=== PATIENT | female | born 1945 | race Caucasian/White ===

== ENCOUNTER → 2016-10-31 | Outpatient (CLI) | payer OTHER ==
[~2016-10-31] MED LIST: ASCA500 PO; CALC1TAB9 PO; CARB0.25 OPB; CPR500 PO; CYCL0.052 OP; KETO0.4S2 OPR; LEVO25TA PO; MULT-845 PO; MULTCAP33 PO
--- NOTE | 2016-11-12 15:22 | EEG Procedure Note ---
EEG Procedure Note Date of Service Oct 31, 2016. Start / End Times Start Time: 10/31/16 @ 9:16AM End Time: 11/02/16 @ 9:40AM Referring Physician JOSIE Villanueva History 71 year old female with episodes of altered consciousness and repeat falls. 48hr Ambulatory EEG for spell capture and for further evaluation of possible seizure etiology. Home Medication List Scheduled Ascorbic Acid (Vitamin C), 500 MG PO BID Calcium Citrate-Vitamin D (Citracal + D3 Maximum), 1 TAB PO BID Ciprofloxacin (Ciprofloxacin HCl), 500 MG PO BID Cyclosporine (Ophth) (Restasis), 1 DROP OP BID Ketorolac Tromethamine (Ophth) (Acular Ls), 1 DROP OPR QID Levothyroxine Sodium (Synthroid), 100 MCG PO DAILY Multiple Vitamins W/ Minerals (Preservision Areds), 1 CAP PO BID Multiple Vitamins W/ Minerals (Centrum Silver Adult 50+), 1 TABS PO BID Scheduled PRN Carboxymethylcellulose-Glyceri (Refresh Optive Advanced), 1 DROP OPB for DRY EYES Description This is a 21 electrode ambulatory EEG with a single channel dedicated to limited EKG. The electrodes were placed in accordance with the International 10- 20 system. At the start of the recording the patient was in an awake state. The background was well organized and composed of symmetric mixed alpha and beta frequencies. There was a well formed symmetric moderate amplitude posterior dominant rhythm of 10-11 Hz that was reactive to eye opening and closure. Sleep was indicated by vertex waves, symmetric sleep spindles, and slow wave sleep. Patient journal was returned and reviewed. There was no clinical events reported. Interpretation This is a normal 48hr ambulatory EEG There was no electrographic seizures or epileptiform discharges. Clinical Correlation A normal EEG does not rule out epilepsy if there is a strong clinical suspicion or for spell types not captured.
== END | disposition home or self-care (01) ==
LOC: C.NEUR 08:20
PROVIDERS: ATTEND Nurse Practitioner Adult Health
DX: R40.4 Transient alteration of awareness (principal); R29.6 Repeated falls

== ENCOUNTER 2017-09-18 19:24 | Observation (INO) | payer OTHER ==
[~2017-09-18] VITALS: Ht 162.6 cm; Wt 63.2 kg
[2017-09-18] MEDS ORDERED: SODIUM CHLORIDE 0.9% 500ML 500 ML IV STA (19:45)
[2017-09-18] MEDS ORDERED: SODIUM CHLORIDE 0.9% 1000ML 1,000 ML IV STA (19:45)
[2017-09-18] MEDS ORDERED: ASPI81TA28 PO (20:04)
[2017-09-18 20:09] LABS: BASO % 0.1 %; BASO ABS # 0.01 K/uL (0-0.2); EOS % 0.1 %; EOS ABS # 0.01 K/uL (0-0.5); HEMATOCRIT 43.5 % (37-47); HEMOGLOBIN 14.5 g/dL (12.0-16.0); IG# 0.02 K/uL (0.00-0.02); LYMPH ABS # 0.46 K/uL (1.2-3.4); MEAN CELL VOLUME 91.6 fL (80-100); MEAN CORPUSCULAR HEMOGLOBIN 30.5 pg (25-34); MEAN CORPUSCULAR HGB CONC 33.3 g/dl (32-36); MONO % 4.8 %; MONO ABS # 0.37 K/uL (0.11-0.59); NEUT % 88.7 %; NEUT ABS # 6.76 K/uL (1.4-6.5); PLATELET COUNT 155 K/uL (130-400); RED CELL DISTRIBUTION WIDTH SD 43.7 fL (36.4-46.3); WHITE BLOOD COUNT 7.63 K/uL (4.8-10.8)
--- NOTE | 2017-09-18 20:13 | DIAGNOSTIC IMAGING REPORT ---
CT SCAN OF THE BRAIN WITHOUT IV CONTRAST CLINICAL HISTORY: Syncope. Fall. COMPARISON STUDY: CT of the brain dated 07/25/2016. TECHNIQUE: Unenhanced axial CT scan of the brain is performed from the vertex to the skull base. A dose lowering technique was utilized adhering to the principles of ALARA. CT DOSE: 873.66 mGy.cm FINDINGS: Brain parenchyma: There are age-related involutional changes noting minimal subcortical and periventricular microangiopathic change. There is no hemorrhage, mass effect, or evidence of acute territorial ischemia by CT criteria. Chavez-white matter is preserved. No extra-axial fluid collection is seen. Ventricles, sulci, cisterns: Prominent secondary to involutional change. Intracranial vasculature: There is mild atherosclerotic calcification of the cavernous carotid arteries. Calvarium: The skeletal structures are osteopenic. No depressed calvarial fracture is seen. Soft tissues: There is a small left frontal scalp contusion. Sinuses and mastoids: Mucosal thickening is seen in the left maxillary antrum. The remaining visualized paranasal sinuses are clear. The mastoid air cells are well pneumatized. Orbits: The bony orbits are grossly intact. IMPRESSION: There is no hemorrhage, mass effect, or evidence of acute territorial ischemia by CT criteria. Electronically signed by: Sourav Posadas M.D. 09/18/2017 8:12 PM Dictated Date/Time: 09/18/2017 8:10 PM
--- NOTE | 2017-09-18 20:20 | DIAGNOSTIC IMAGING REPORT ---
CT SCAN OF THE FACIAL BONES WITHOUT IV CONTRAST CLINICAL HISTORY: Syncope. Left facial injury. COMPARISON STUDY: CT scan of the brain performed concurrently on 09/18/2017. TECHNIQUE: High-resolution CT scan of the facial bones is performed. Images are reviewed in the axial, sagittal, and coronal planes. IV contrast was not administered for this examination. A dose lowering technique was utilized adhering to the principles of ALARA. CT DOSE: Reported separately under the concurrently performed CT scan of the brain. FINDINGS: The skeletal structures are osteopenic. There is a nondepressed fracture of the left orbital floor with trace gas within the left inferior orbital space. There is no evidence of extraocular muscle or orbital fat entrapment. There is also comminuted fracture involving the posterior wall of the left maxillary antrum. The right orbit is intact. The orbital contents are within normal limits. The zygomatic arches, nasal bones, and pterygoid plates are preserved. The mandible is intact. Arthritic change is seen involving temporomandibular joints, left greater than right. Layering blood products are identified within the left maxillary antrum. The remaining paranasal sinuses are clear and the mastoid air cells are well pneumatized. The visualized calvarium and upper cervical spine are maintained. Partially imaged brain parenchyma is within normal limits. There is left periorbital and premalar soft tissue contusion/hematoma. There is also a small left frontal scalp contusion. IMPRESSION: 1. There is a nondepressed fracture of the left orbital floor. 2. There is comminuted fracture involving the posterior wall of the left maxillary antrum with layering blood products within the left maxillary sinus. 3. No additional facial bone fracture is seen. 4. Left facial soft tissue injuries as above. Electronically signed by: Sourav Posadas M.D. 09/18/2017 8:19 PM Dictated Date/Time: 09/18/2017 8:13 PM
[2017-09-18 20:21] LABS: INR 0.9 (0.9-1.1); PTT PATIENT 23.8 SECONDS (21.0-31.0)
[2017-09-18 20:28] LABS: ALBUMIN 4.1 gm/dl (3.4-5.0); ALT/SGPT 22 U/L (12-78); BLOOD UREA NITROGEN 12 mg/dl (7-18); CALCIUM 9.4 mg/dl (8.5-10.1); CARBON DIOXIDE 30 mmol/L (21-32); CREATININE 0.82 mg/dl (0.60-1.20); GLUCOSE 131 mg/dl (70-99); LIPASE 150 U/L (73-393); POTASSIUM 3.9 mmol/L (3.5-5.1); SODIUM 138 mmol/L (136-145)
--- NOTE | 2017-09-18 20:32 | DIAGNOSTIC IMAGING REPORT ---
CT SCAN OF THE CERVICAL SPINE CLINICAL HISTORY: Fall. Syncope. COMPARISON STUDY: No priors. TECHNIQUE: CT scan of the cervical spine is performed from the skull base to the upper thoracic spine. Images are reviewed in the axial, sagittal, and coronal planes. IV contrast was not administered for this examination. A dose lowering technique was utilized adhering to the principles of ALARA. CT DOSE: Reported separately under the concurrently performed CT scan of the brain. FINDINGS: Skeletal structures: The skeletal structures are osteopenic. There is no evidence of fracture or subluxation involving the cervical spine. Incomplete bony fusion of the posterior ring of C1 is likely on a congenital basis. There is a right-sided laminar defect at C5 and bilateral laminar defects of C6. These are well corticated and likely on a congenital basis. Less likely this could be related to remote trauma. There is 3 mm associated anterolisthesis at C6-C7. Alignment is otherwise preserved. Vertebral body height is maintained. The odontoid process and lateral masses are intact. The atlantoaxial articulation is preserved. The spinous processes appear intact. Large anterior osteophytes are seen at C3-C4. Degenerative sclerosis is seen at C3-C4. Mild facet arthropathy seen in the lower cervical region. Intervertebral discs: There is moderate disc space narrowing seen at C3-C4. Mild disc space narrowing is seen at C4-C5 and C6-C7. Central canal: Widely patent. Soft tissues: The prevertebral and paraspinous soft tissues are within normal limits. There is a 7 mm nodule in the left lobe of the thyroid gland which contains calcifications and fat. A coarse calcification is also seen in the right thyroid lobe. Calvarium: The visualized calvarium at the skull base appears intact. Brain parenchyma: Partially visualized brain parenchyma the skull base is within normal limits. Sinuses and mastoids: The visualized paranasal sinuses are clear. The mastoid air cells are well pneumatized. Lung apices: Clear as visualized. IMPRESSION: 1. There is no evidence of fracture or subluxation involving the cervical spine. 2. Osteopenia noting mild spondylotic change as well as congenital changes as above Electronically signed by: Sourav Posadas M.D. 09/18/2017 8:31 PM Dictated Date/Time: 09/18/2017 8:24 PM
[2017-09-18 20:37] LABS: ALKALINE PHOSPHATASE 117 U/L (45-117); AST/SGOT 20 U/L (15-37); CKMB 4.1 ng/ml (0.5-3.6); TOTAL PROTEIN 7.2 gm/dl (6.4-8.2)
--- NOTE | 2017-09-18 20:45 | DIAGNOSTIC IMAGING REPORT ---
SINGLE VIEW CHEST CLINICAL HISTORY: Generalized weakness. FINDINGS: An AP, portable, upright chest radiograph is compared to study dated 07/25/2016. The examination is degraded by portable technique and patient rotation. The heart is enlarged and there is atherosclerotic calcification of the thoracic aorta. The pulmonary vasculature is noncongested. Chronic interstitial thickening is similar to previous. No airspace consolidation, large pleural effusion, or pneumothorax is seen. The skeletal structures are osteopenic. The bony thorax is grossly intact. Degenerative change and scoliosis are noted in the thoracic spine. A large lucency is suggested in the scapula. IMPRESSION: 1. Cardiomegaly with no acute cardiopulmonary abnormality. 2. A large lucent lesion is suggested in the left scapula. Consider follow-up with a nonemergent chest CT. Electronically signed by: Sourav Posadas M.D. 09/18/2017 8:44 PM Dictated Date/Time: 09/18/2017 8:41 PM
[2017-09-18] MEDS ORDERED: ACETAMINOPHEN 500 MG TAB PO STA (22:24)
[2017-09-18] MEDS ORDERED: CLINDAMYCIN HCL 150 MG CAP PO ONE (22:30)
[2017-09-18] MEDS ORDERED: IV FLUIDS COMPLETED PRN (23:15)
[2017-09-18 23:45] VITALS: Ht 162.6 cm; Wt 63.2 kg
--- NOTE | 2017-09-18 23:45 | NUR ---
OBS: ARRIVED FROM ED. ORIENTED TO ROOM/CALL DE JESUS. SIGNED CODE WORD AND FALL AGREEMENT FORMS. MONITOR ON. SISTER AT BEDSIDE ASSISTING WITH MRI SCREENING. CALLL DE JESUS IN REACH. BED ALARM ON. SEE EMR FOR COMPLETE ADM ASSESSMENT. Addendum: 09/19/17 at 0519 by Chloe Javed RN SISTER NOTIFIED TO BRING IN PT'S NONFORMULARY MEDS
[2017-09-19] VITALS (7 sets, daily range): BP systolic 125–145; BP diastolic 69–73; PULSE 66–78; TEMP 36.3–36.7; O2SAT 93–97
--- NOTE | 2017-09-19 00:11 | History and Physical ---
History & Physical Date & Time of Service: Sep 19, 2017 at 00:11 Chief Complaint: Syncope Primary Care Physician: Meeta Hernández D.O. History of Present Illness 72 y/o female with history of Mitral Regurgitation, Hypothyroidism, HLD presenting with syncope. Patient was admitted last year with episodes of altered mental status, Neurology was consulted, work up including MRI brain and EEG was unrevealing. She was apparently doing well until the day of admission. At around 3pm, the patient was resting in bed, reading a magazine, and apparently, she found herself on the floor, caught between the bed and the nightstand, at 6pm. She denied being confused and was able to call her sister for help. Denies dizziness, palpitations, chest pain before the event. At the ER, patient CT head and CT neck were unrevealing. CT maxillofacial showed left orbital and maxillary fractures. On exam, patient seen resting in bed, not in distress. Reports mild pain on the left periorbital region and frontal headache. Otherwise denies other symptoms. 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 EF 60-65%. Stage 1 diastolic dysfunction. Status: Chronic (4) Hx of basal cell carcinoma Permanent Comment: L lower leg 2008 Status: Chronic (5) Hypothyroidism Status: Chronic (6) Macular degeneration Status: Chronic Surgical Problems: (1) History of eye surgery Status: Chronic (2) Hx of tonsillectomy Status: Chronic Family History Patient reports no known family medical history. Social History Smoking Status: Never Smoker Drug Use: none Marital Status: single Housing status: lives alone Occupational Status: retired Allergies Coded Allergies: Ampicillin (Verified Allergy, Unknown, ., 09/18/17) Latex1 -Allergic Contact Dermititis (Verified Allergy, Unknown, RASH, ) Milk (Unverified Allergy, Unknown, GI ISSUES, 09/18/17) Penicillins (Verified Allergy, Unknown, ., 09/18/17) Home Medications Scheduled Aspirin (Aspirin Ec), 81 MG PO DAILY Carboxymethylcellulose-Glyceri (Refresh Optive Advanced), 1 DROP OPB QID Cyclosporine (Ophth) (Restasis), 1 DROP OP BID Ketorolac Tromethamine (Ophth) (Acular Ls), 1 DROP OPR BID Levothyroxine Sodium (Synthroid), 100 MCG PO DAILY Multiple Vitamins W/ Minerals (Preservision Areds), 1 CAP PO BID Review of Systems Constitutional- no fever; no weight loss Eyes- no acute visual changes ENT- no sinus drainage; no pharyngitis Pulmonary- no cough, no wheezing, no shortness of breath Cardiac- no chest pain, no palpitations, no orthopnea, no dependent edema GI- no nausea, no vomiting, no diarrhea, no melena, no hematochezia - no dysuria, no hematuria Musculoskeletal- no arthralgias, no myalgias Derm- no rashes, no new skin lesions, no changing skin lesions Hematologic- no unusual bruising, no unusual bleeding Lymphatics- no adenopathy Endocrine- no polyuria or polydipsia; no heat or cold intolerance Neuro- no headaches, no focal neurologic symptoms Psych- no anxiety, no depression Physical Exam Vital Signs Date Time Temp Pulse Resp B/P (MAP) Pulse Ox O2 Delivery O2 Flow Rate FiO2 09/18/17 22:39 81 17 139/71 98 Room Air 09/18/17 22:01 75 13 139/71 96 Room Air 09/18/17 21:28 76 13 148/74 96 Room Air 09/18/17 20:41 78 09/18/17 20:34 77 16 149/73 98 Room Air 09/18/17 20:29 98 Room Air 09/18/17 20:26 79 16 152/70 98 Room Air 77 149/73 88 152/73 09/18/17 19:27 36.2 73 18 158/76 98 Room Air General Appearance: WD/WN, no apparent distress Head: normocephalic, atraumatic Eyes: PERRL, EOMI, sclerae normal, + pertinent finding ((+) left inferior periorbital hematoma and swelling) ENT: normal ENT inspection, hearing grossly normal, pharynx normal Neck: supple, no adenopathy, thyroid normal, no JVD, trachea midline Respiratory/Chest: chest non-tender, lungs clear, normal breath sounds, no respiratory distress, no accessory muscle use Cardiovascular: regular rate, rhythm, no edema, no JVD, no murmur Abdomen/GI: normal bowel sounds, non tender, soft Back: normal inspection, no CVA tenderness Extremities/Musculoskelatal: normal inspection, no calf tenderness, no pedal edema, normal range of motion, non-tender Neurologic/Psych: chief underwriter II-XII nml as tested, no motor/sensory deficits, alert, normal mood/affect, oriented x 3 Skin: normal color, warm/dry, no rash Lymphatic: no adenopathy Diagnostics Laboratory Results Results Past 24 Hours Test 09/18/17 19:45 09/18/17 21:15 09/19/17 00:01 Range/Units White Blood Count 7.63 4.8-10.8 K/uL Red Blood Count 4.75 4.2-5.4 M/uL Hemoglobin 14.5 12.0-16.0 g/dL Hematocrit 43.5 37-47 % Mean Corpuscular Volume 91.6 80-100 fL Mean Corpuscular Hemoglobin 30.5 25-34 pg Mean Corpuscular Hemoglobin Concent 33.3 32-36 g/dl Platelet Count 155 130-400 K/uL Mean Platelet Volume 10.0 7.4-10.4 fL Neutrophils (%) (Auto) 88.7 % Lymphocytes (%) (Auto) 6.0 % Monocytes (%) (Auto) 4.8 % Eosinophils (%) (Auto) 0.1 % Basophils (%) (Auto) 0.1 % Neutrophils # (Auto) 6.76 1.4-6.5 K/uL Lymphocytes # (Auto) 0.46 1.2-3.4 K/uL Monocytes # (Auto) 0.37 0.11-0.59 K/uL Eosinophils # (Auto) 0.01 0-0.5 K/uL Basophils # (Auto) 0.01 0-0.2 K/uL RDW Standard Deviation 43.7 36.4-46.3 fL RDW Coefficient of Variation 13.0 11.5-14.5 % Immature Granulocyte % (Auto) 0.3 % Immature Granulocyte # (Auto) 0.02 0.00-0.02 K/uL Prothrombin Time 9.9 9.0-12.0 SECONDS Prothromb Time International Ratio 0.9 0.9-1.1 Activated Partial Thromboplast Time 23.8 21.0-31.0 SECONDS Partial Thromboplastin Ratio 0.9 Sodium Level 138 136-145 mmol/L Potassium Level 3.9 3.5-5.1 mmol/L Chloride Level 102 98-107 mmol/L Carbon Dioxide Level 30 21-32 mmol/L Anion Gap 6.0 3-11 mmol/L Blood Urea Nitrogen 12 7-18 mg/dl Creatinine 0.82 0.60-1.20 mg/dl Est Creatinine Clear Calc Drug Dose 55.2 ml/min Estimated GFR () 84.0 Estimated GFR (Non- 72.5 BUN/Creatinine Ratio 14.7 10-20 Random Glucose 131 70-99 mg/dl Calcium Level 9.4 8.5-10.1 mg/dl Magnesium Level 2.5 1.8-2.4 mg/dl Total Bilirubin 0.4 0.2-1 mg/dl Direct Bilirubin < 0.1 0-0.2 mg/dl Aspartate Amino Transf (AST/SGOT) 20 15-37 U/L Alanine Aminotransferase (ALT/SGPT) 22 12-78 U/L Alkaline Phosphatase 117 45-117 U/L Total Creatine Kinase 128 26-192 U/L Creatine Kinase MB 4.1 0.5-3.6 ng/ml Creatine Kinase MB Ratio 3.2 0-3.0 Troponin I < 0.015 0-0.045 ng/ml Total Protein 7.2 6.4-8.2 gm/dl Albumin 4.1 3.4-5.0 gm/dl Lipase 150 73-393 U/L Thyroid Stimulating Hormone (TSH) 0.079 0.300-4.500 uIu/ml Urine Color YELLOW Urine Appearance CLEAR CLEAR Urine pH 8.0 4.5-7.5 Urine Specific [place] 1.010 1.000-1.030 Urine Protein NEG NEG Urine Glucose (UA) NEG NEG Urine Ketones NEG NEG Urine Occult Blood NEG NEG Urine Nitrite NEG NEG Urine Bilirubin NEG NEG Urine Urobilinogen NEG NEG Urine Leukocyte Esterase NEG NEG Microbiology Results 09/18/17 Urine Culture, Received Pending Diagnostic Radiology CT maxillofacial: IMPRESSION: 1. There is a nondepressed fracture of the left orbital floor. 2. There is comminuted fracture involving the posterior wall of the left maxillary antrum with layering blood products within the left maxillary sinus. 3. No additional facial bone fracture is seen. 4. Left facial soft tissue injuries as above. EKG HR 72, sinus rhythm, no signs of acute ischemia Impression Assessment and Plan 72 y/o female with history of Mitral Regurgitation, Hypothyroidism, HLD presenting with syncope. SYNCOPE R/O ARRHYTHMIA - episode without any prodrome - check echo telemetry - Cardiology consult - may need outpatient cardiac monitoring R/O SEIZURE - check Brain MRI EEG - Neurology consulted PE UNLIKELY - no tachycardia, hypoxia LEFT ORBITAL FRACTURE, LEFT MAXILLARY SINUS s/p FALL - given Clinda at the ER - ENT consulted LEFT SCAPULAR LESION - ff up HYPOTHYROIDISM - TSH low ff up Free t4 - hold L thyroxine until FT4 determined DVT PROPHYLAXIS SCDs FULL CODE per patient DISPOSITION pending lives alone PT/OT eval PCP ff up VTE Prophylaxis VTE Risk Assessment Done? Y/N: Yes Risk Level: Moderate Given or contraindicated: SCD's
[2017-09-19] MEDS ORDERED: ONDANSETRON INJ 2 MG/ML 2 ML VIAL IV PRN (00:15)
[2017-09-19] MEDS ORDERED: ACETAMINOPHEN 325 MG TAB PO PRN (00:15)
--- NOTE | 2017-09-19 00:25 | EMERGENCY ROOM VISIT NOTE ---
History Report prepared by Diane: Bharat Wing Under the Supervision of: Dr. Thomas Leary M.D. First contact with patient: 19:40 Chief Complaint: FALL Stated Complaint: FELL,HIT HEAD,NAUSEA History of Present Illness The patient is a 72 year old female who presents to the Emergency Room with complaints of a resolved syncope that occurred at 1430. The patient states that she went to read a magazine and sit on her bed at 1430. She reports that she experienced a syncopal episode and fell. The patient states that as she was falling she hit her head on the night stand. She states that she woke up around 1800 and was too weak to stand up. The patient states that she was eventually able to stand up, but reports that she became dizzy. She reports that she went to the bathroom and became nauseous, which caused her to vomit. The patient states that she currently is experiencing face pain. Per nursing, the patient has a large hematoma to her left arm, bruising on the left side of her face, and is bleeding out of her left ear. The patient denies any current nausea, vision problems, neck pain, ear pain, abdominal pain, taking any blood thinners. She reports that she has had two similar incidents in the past. The patient states that the first incident, she needed sutures on her head. She states that during her second incident in July 2016, she broke her scapula. Source of History: patient Onset: 1430 Position: other (global) Quality: other (global) Timing: resolved Associated Symptoms: + nausea, + vomiting, + weakness, No neck pain, No abdominal pain Review of Systems See HPI for pertinent positives and negatives. A total of ten systems were reviewed and were otherwise negative. 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 Social History Smoking Status: Never Smoker Alcohol Use: none Drug Use: none Marital Status: single Housing Status: lives alone Occupation Status: retired Current/Historical Medications Scheduled Aspirin (Aspirin Ec), 81 MG PO DAILY Carboxymethylcellulose-Glyceri (Refresh Optive Advanced), 1 DROP OPB QID Cyclosporine (Ophth) (Restasis), 1 DROP OP BID Ketorolac Tromethamine (Ophth) (Acular Ls), 1 DROP OPR BID Levothyroxine Sodium (Synthroid), 100 MCG PO DAILY Multiple Vitamins W/ Minerals (Preservision Areds), 1 CAP PO BID Allergies Coded Allergies: Ampicillin (Verified Allergy, Unknown, ., 09/18/17) Latex1 -Allergic Contact Dermititis (Verified Allergy, Unknown, RASH, ) Milk (Unverified Allergy, Unknown, GI ISSUES, 09/18/17) Penicillins (Verified Allergy, Unknown, ., 09/18/17) Physical Exam Vital Signs Date Time Temp Pulse Resp B/P (MAP) Pulse Ox O2 Delivery O2 Flow Rate FiO2 09/18/17 22:39 81 17 139/71 98 Room Air 09/18/17 22:01 75 13 139/71 96 Room Air 09/18/17 21:28 76 13 148/74 96 Room Air 09/18/17 20:41 78 09/18/17 20:34 77 16 149/73 98 Room Air 09/18/17 20:29 98 Room Air 09/18/17 20:26 79 16 152/70 98 Room Air 77 149/73 88 152/73 09/18/17 19:27 36.2 73 18 158/76 98 Room Air Physical Exam GENERAL: Awake, alert, well-appearing, in no distress HENT: Normocephalic, atraumatic. Oropharynx unremarkable. EYES: Normal conjunctiva. Sclera non-icteric. No hyphema. NECK: Supple. No nuchal rigidity. FROM. No JVD. RESPIRATORY: Clear to auscultation. CARDIAC: Regular rate, normal rhythm. Extremities warm and well perfused. Pulses equal. ABDOMEN: Soft, non-distended. No tenderness to palpation. No rebound or guarding. No masses. RECTAL: Deferred. MUSCULOSKELETAL: Chest examination reveals no tenderness. The back is symmetrical on inspection without obvious abnormality. There is no CVA tenderness to palpation. No joint edema. LOWER EXTREMITIES: Calves are equal size bilaterally and non-tender. No edema. No discoloration. NEURO: Normal sensorium. No sensory or motor deficits noted. SKIN: No rash or jaundice noted. Left periorbital ecchymosis. Dried blood on the left ear. Left upper lip bruise with abrasion. Contusion left deltoid and bicep. Associated abrasion to left bicep. Left forehead bruising. Medical Decision & Procedures ER Provider Diagnostic Interpretation: Radiology results as stated below per my review and radiologist interpretation: CT SCAN OF THE FACIAL BONES WITHOUT IV CONTRAST CLINICAL HISTORY: Syncope. Left facial injury. COMPARISON STUDY: CT scan of the brain performed concurrently on 09/18/2017. TECHNIQUE: High-resolution CT scan of the facial bones is performed. Images are reviewed in the axial, sagittal, and coronal planes. IV contrast was not administered for this examination. A dose lowering technique was utilized adhering to the principles of ALARA. CT DOSE: Reported separately under the concurrently performed CT scan of the brain. FINDINGS: The skeletal structures are osteopenic. There is a nondepressed fracture of the left orbital floor with trace gas within the left inferior orbital space. There is no evidence of extraocular muscle or orbital fat entrapment. There is also comminuted fracture involving the posterior wall of the left maxillary antrum. The right orbit is intact. The orbital contents are within normal limits. The zygomatic arches, nasal bones, and pterygoid plates are preserved. The mandible is intact. Arthritic change is seen involving temporomandibular joints, left greater than right. Layering blood products are identified within the left maxillary antrum. The remaining paranasal sinuses are clear and the mastoid air cells are well pneumatized. The visualized calvarium and upper cervical spine are maintained. Partially imaged brain parenchyma is within normal limits. There is left periorbital and premalar soft tissue contusion/hematoma. There is also a small left frontal scalp contusion. IMPRESSION: 1. There is a nondepressed fracture of the left orbital floor. 2. There is comminuted fracture involving the posterior wall of the left maxillary antrum with layering blood products within the left maxillary sinus. 3. No additional facial bone fracture is seen. 4. Left facial soft tissue injuries as above. Electronically signed by: Sourav Posadas M.D. 09/18/2017 8:19 PM Dictated Date/Time: 09/18/2017 8:[address] SCAN OF THE BRAIN WITHOUT IV CONTRAST CLINICAL HISTORY: Syncope. Fall. COMPARISON STUDY: CT of the brain dated 07/25/2016. TECHNIQUE: Unenhanced axial CT scan of the brain is performed from the vertex to the skull base. A dose lowering technique was utilized adhering to the principles of ALARA. CT DOSE: 873.66 mGy.cm FINDINGS: Brain parenchyma: There are age-related involutional changes noting minimal subcortical and periventricular microangiopathic change. There is no hemorrhage, mass effect, or evidence of acute territorial ischemia by CT criteria. Chavez-white matter is preserved. No extra-axial fluid collection is seen. Ventricles, sulci, cisterns: Prominent secondary to involutional change. Intracranial vasculature: There is mild atherosclerotic calcification of the cavernous carotid arteries. Calvarium: The skeletal structures are osteopenic. No depressed calvarial fracture is seen. Soft tissues: There is a small left frontal scalp contusion. Sinuses and mastoids: Mucosal thickening is seen in the left maxillary antrum. The remaining visualized paranasal sinuses are clear. The mastoid air cells are well pneumatized. Orbits: The bony orbits are grossly intact. IMPRESSION: There is no hemorrhage, mass effect, or evidence of acute territorial ischemia by CT criteria. Electronically signed by: Sourav Posadas M.D. 09/18/2017 8:12 PM Dictated Date/Time: 09/18/2017 8:10 PM SINGLE VIEW CHEST CLINICAL HISTORY: Generalized weakness. FINDINGS: An AP, portable, upright chest radiograph is compared to study dated 07/25/2016. The examination is degraded by portable technique and patient rotation. The heart is enlarged and there is atherosclerotic calcification of the thoracic aorta. The pulmonary vasculature is noncongested. Chronic interstitial thickening is similar to previous. No airspace consolidation, large pleural effusion, or pneumothorax is seen. The skeletal structures are osteopenic. The bony thorax is grossly intact. Degenerative change and scoliosis are noted in the thoracic spine. A large lucency is suggested in the scapula. IMPRESSION: 1. Cardiomegaly with no acute cardiopulmonary abnormality. 2. A large lucent lesion is suggested in the left scapula. Consider follow-up with a nonemergent chest CT. Electronically signed by: Sourav Posadas M.D. 09/18/2017 8:44 PM Dictated Date/Time: 09/18/2017 8:[address] SCAN OF THE CERVICAL SPINE CLINICAL HISTORY: Fall. Syncope. COMPARISON STUDY: No priors. TECHNIQUE: CT scan of the cervical spine is performed from the skull base to the upper thoracic spine. Images are reviewed in the axial, sagittal, and coronal planes. IV contrast was not administered for this examination. A dose lowering technique was utilized adhering to the principles of ALARA. CT DOSE: Reported separately under the concurrently performed CT scan of the brain. FINDINGS: Skeletal structures: The skeletal structures are osteopenic. There is no evidence of fracture or subluxation involving the cervical spine. Incomplete bony fusion of the posterior ring of C1 is likely on a congenital basis. There is a right-sided laminar defect at C5 and bilateral laminar defects of C6. These are well corticated and likely on a congenital basis. Less likely this could be related to remote trauma. There is 3 mm associated anterolisthesis at C6-C7. Alignment is otherwise preserved. Vertebral body height is maintained. The odontoid process and lateral masses are intact. The atlantoaxial articulation is preserved. The spinous processes appear intact. Large anterior osteophytes are seen at C3-C4. Degenerative sclerosis is seen at C3-C4. Mild facet arthropathy seen in the lower cervical region. Intervertebral discs: There is moderate disc space narrowing seen at C3-C4. Mild disc space narrowing is seen at C4-C5 and C6-C7. Central canal: Widely patent. Soft tissues: The prevertebral and paraspinous soft tissues are within normal limits. There is a 7 mm nodule in the left lobe of the thyroid gland which contains calcifications and fat. A coarse calcification is also seen in the right thyroid lobe. Calvarium: The visualized calvarium at the skull base appears intact. Brain parenchyma: Partially visualized brain parenchyma the skull base is within normal limits. Sinuses and mastoids: The visualized paranasal sinuses are clear. The mastoid air cells are well pneumatized. Lung apices: Clear as visualized. IMPRESSION: 1. There is no evidence of fracture or subluxation involving the cervical spine. 2. Osteopenia noting mild spondylotic change as well as congenital changes as above Electronically signed by: Sourav Posadas M.D. 09/18/2017 8:31 PM Dictated Date/Time: 09/18/2017 8:24 PM Laboratory Results 09/18/17 19:45 Red Blood Count 4.75, Mean Corpuscular Volume 91.6, Mean Corpuscular Hemoglobin 30.5, Mean Corpuscular Hemoglobin Concent 33.3, Mean Platelet Volume 10.0, Neutrophils (%) (Auto) 88.7, Lymphocytes (%) (Auto) 6.0, Monocytes (%) (Auto) 4.8, Eosinophils (%) (Auto) 0.1, Basophils (%) (Auto) 0.1, Neutrophils # (Auto) 6.76, Lymphocytes # (Auto) 0.46, Monocytes # (Auto) 0.37, Eosinophils # (Auto) 0.01, Basophils # (Auto) 0.01 09/18/17 19:45 Test 09/18/17 19:45 09/18/17 21:15 White Blood Count 7.63 K/uL (4.8-10.8) Red Blood Count 4.75 M/uL (4.2-5.4) Hemoglobin 14.5 g/dL (12.0-16.0) Hematocrit 43.5 % (37-47) Mean Corpuscular Volume 91.6 fL (80-100) Mean Corpuscular Hemoglobin 30.5 pg (25-34) Mean Corpuscular Hemoglobin Concent 33.3 g/dl (32-36) Platelet Count 155 K/uL (130-400) Mean Platelet Volume 10.0 fL (7.4-10.4) Neutrophils (%) (Auto) 88.7 % Lymphocytes (%) (Auto) 6.0 % Monocytes (%) (Auto) 4.8 % Eosinophils (%) (Auto) 0.1 % Basophils (%) (Auto) 0.1 % Neutrophils # (Auto) 6.76 K/uL (1.4-6.5) Lymphocytes # (Auto) 0.46 K/uL (1.2-3.4) Monocytes # (Auto) 0.37 K/uL (0.11-0.59) Eosinophils # (Auto) 0.01 K/uL (0-0.5) Basophils # (Auto) 0.01 K/uL (0-0.2) RDW Standard Deviation 43.7 fL (36.4-46.3) RDW Coefficient of Variation 13.0 % (11.5-14.5) Immature Granulocyte % (Auto) 0.3 % Immature Granulocyte # (Auto) 0.02 K/uL (0.00-0.02) Prothrombin Time 9.9 SECONDS (9.0-12.0) Prothromb Time International Ratio 0.9 (0.9-1.1) Activated Partial Thromboplast Time 23.8 SECONDS (21.0-31.0) Partial Thromboplastin Ratio 0.9 Anion Gap 6.0 mmol/L (3-11) Est Creatinine Clear Calc Drug Dose 55.2 ml/min Estimated GFR () 84.0 Estimated GFR (Non- 72.5 BUN/Creatinine Ratio 14.7 (10-20) Calcium Level 9.4 mg/dl (8.5-10.1) Magnesium Level 2.5 mg/dl (1.8-2.4) Total Bilirubin 0.4 mg/dl (0.2-1) Direct Bilirubin < 0.1 mg/dl (0-0.2) Aspartate Amino Transf (AST/SGOT) 20 U/L (15-37) Alanine Aminotransferase (ALT/SGPT) 22 U/L (12-78) Alkaline Phosphatase 117 U/L (45-117) Total Creatine Kinase 128 U/L (26-192) Creatine Kinase MB 4.1 ng/ml (0.5-3.6) Creatine Kinase MB Ratio 3.2 (0-3.0) Troponin I < 0.015 ng/ml (0-0.045) Total Protein 7.2 gm/dl (6.4-8.2) Albumin 4.1 gm/dl (3.4-5.0) Lipase 150 U/L (73-393) Thyroid Stimulating Hormone (TSH) 0.079 uIu/ml (0.300-4.500) Urine Color YELLOW Urine Appearance CLEAR (CLEAR) Urine pH 8.0 (4.5-7.5) Urine Specific [place] 1.010 (1.000-1.030) Urine Protein NEG (NEG) Urine Glucose (UA) NEG (NEG) Urine Ketones NEG (NEG) Urine Occult Blood NEG (NEG) Urine Nitrite NEG (NEG) Urine Bilirubin NEG (NEG) Urine Urobilinogen NEG (NEG) Urine Leukocyte Esterase NEG (NEG) Laboratory results reviewed by me Medications Administered Medications (Trade) Dose Ordered Sig/Marlyn Route Start Time Stop Time Status Last Admin Dose Admin Sodium Chloride 1,000 ml @ 125 mls/hr Q8H STAT IV 09/18/17 19:45 09/19/17 00:12 DC 09/18/17 20:32 125 MLS/HR Sodium Chloride 500 ml @ 999 mls/hr Q31M STAT IV 09/18/17 19:45 09/18/17 20:15 DC 09/18/17 20:33 999 MLS/HR Clindamycin HCl (Cleocin Cap) 150 mg ONE ONCE PO 09/18/17 22:30 09/18/17 22:31 DC 09/18/17 22:36 150 MG Acetaminophen (Tylenol Tab) 1,000 mg NOW STAT PO 09/18/17 22:24 09/18/17 22:25 DC 09/18/17 22:37 1,000 MG ECG Indication: syncope Rate (beats per minute): 72 Rhythm: normal sinus Findings: nonspecific-ST abn, no ectopy ED Course 1943: The patient was evaluated in room B08. A complete history and physical exam was performed. 1944: Ordered Sodium Chloride 500 ml @ 999 mls/hr Iv, Sodium Chloride 1000 ml @ 125 mls/hr IV. 2140: I reevaluated the patient and informed her of her results. I discussed the treatment plan and possible admission. 2223: Ordered Tylenol Tab 1000 mg PO. 2226: I discussed the patient's [facility] the patient's condition and agrees to accept the patient. The patient will be further evaluated. 2229: Ordered Cleocin Cap 150 mg PO. Medical Decision Triage Nursing notes reviewed. The patient's presentation and history were concerning for syncope. Etiologies such as vasovagal event, fracture, soft tissue injury, intracranial bleeding, infection, hypoglycemia, electrolyte abnormalities, cardiac sources, intracerebral event, toxicologic, neurologic, as well as others were entertained. The patient was evaluated. Physical examination was nonfocal. She had significant facial contusions on the left side. Imaging was ordered. She was found to have maxillary sinus fractures on the left side but no intracranial bleeding or other pathology noted. Blood work was unremarkable. Urine test is unremarkable. ECG did not reveal any acute findings. Cardiac monitoring was negative. The patient had a significant syncopal-like episode and suffered a moderate headache injury. She will need to be admitted to the hospital for further management. Consultation was made with the [facility] service. The patient was evaluated in the Emergency Room for further management. She was given a dose of clindamycin for prophylaxis of her sinus. Medication Reconcilliation Current Medication List: was personally reviewed by me Blood Pressure Screening Patient's blood pressure: Elevated blood pressure Referred to Hospitalist. Consults Time Called: 2226 Consulting Physician[facility] Return[facility] Call: 2226 I discussed the patient's case [facility] understands the patient's condition and agrees to accept the patient. The patient will be further evaluated. Impression Primary Impression: Syncope Additional Impression: Left maxillary fracture Scribe Attestation The scribe's documentation has been prepared under my direction and personally reviewed by me in its entirety. I confirm that the note above accurately reflects all work, treatment, procedures, and medical decision making performed by me. Departure Information Dispostion Being Evaluated By Hospitalist Referrals Meeta Hernández D.O. (PCP) Patient Instructions My [facility] Problem Qualifiers
[2017-09-19] MEDS: SODIUM CHLORIDE 0.9% 1000ML 1,000 ML IV SCH ×2 (00:30→13:50)
--- NOTE | 2017-09-19 04:00 | NUR ---
OBS: A/O. DENIES SOB/CP, N/V, NUMBNESS/TINGLING, DIZZINESS OR PALPITATIONS ON RA. MONITOR ON. VSS. CALL DE JESUS IN REACH. BED ALARM ON. TO HAVE MRI AND ECHO IN AM. NEURO, CARDIO, AND ENT CONSULTED.
[2017-09-19] MEDS ORDERED: RESTASIS~ORDER AWAITING ACTION SCH (08:00)
--- NOTE | 2017-09-19 08:00 | NUR ---
Observational Note:Patient alert and oriented X 4, Denies Chest pain/discomfort/Syncope thus far, Vss. See EMR for full assessment. Assistance of 1 required d/t S/p fall d/t Syncopal episode at home. satellite project site monitor applied on, NSR, Heart rate Low 70's noted. Will continue to monitor and update MD as needed. Call tijerina within reach.
--- NOTE | 2017-09-19 08:40 | Progress Note ---
Progress Note Date of Service Sep 19, 2017. Progress Note ATTENDING NOTE ; Pt admitted with syncope leading to fall , facial injury D dimer elevated > 700 CTA of chest ordered to R/O PE ( renal function stable for contrast study Cr 0.8 /GFR > 70 ) no contrast allergy noted Lower ext Doppler for evaluation for DVT pt will be continued to be monitored in TELE r/o arrhythmia ECHO ordered for valvular pathology detection Cardiology eval requested neurology and Neuro work up ordered
[2017-09-19] MEDS: ARTIFICIAL TEARS OP SOLN OPB SCH ×2 (09:00→13:00)
[2017-09-19] MEDS ORDERED: OPTIRAY 320 IV PRN (09:15)
--- NOTE | 2017-09-19 09:27 | NUR ---
Observational Note:Patient transferred to Ultrasound/CT chest to r/o PE w/ Norma, PCU float nurse via bed. Will continue to monitor and update MD as needed.
--- NOTE | 2017-09-19 10:05 | DIAGNOSTIC IMAGING REPORT ---
CHEST CTA for PULMONARY ARTERIES CT DOSE: 250.09 mGy.cm HISTORY: Syncope. Elevated D dimer. TECHNIQUE: Multiaxial CT images of the chest were performed following the intravenous administration of contrast to evaluate the pulmonary arteries. Maximal intensity projection images were also obtained. A dose lowering technique was utilized adhering to the principles of ALARA. COMPARISON STUDY: Chest 09/18/2017. FINDINGS: Normal caliber thoracic aorta with no evidence for dissection. Motion artifact results in nondiagnostic evaluation of the bilateral lower lobe subsegmental pulmonary arteries. The remaining pulmonary arteries show no filling defects to suggest pulmonary embolus. The heart is mildly enlarged. No pleural or pericardial effusions. No mediastinal or hilar lymphadenopathy. Mild subcutaneous edema within the left upper chest. This is of uncertain clinical significance. The visualized liver, spleen, and adrenal glands are unremarkable. Old, healed left scapular fracture. This accounts for the chest x-ray abnormality. No pneumothorax. Bibasilar linear densities consistent with subsegmental atelectasis. A 3 mm nodule within the right upper lobe on image 201. Calcified granuloma seen within the base of the right lower lobe. No focal lung consolidations to suggest pneumonia. IMPRESSION: 1. No evidence for pulmonary embolus with limitations as described above. 2. The heart is mildly enlarged. 3. Bibasilar linear densities which favor subsegmental atelectasis. 4. Old, healed left scapular fracture. This accounts for the chest x-ray abnormality. 5. Mild subcutaneous edema within the left upper chest. This is of uncertain clinical significance. 6. A 3 mm indeterminate pulmonary nodule within the right upper lobe Electronically signed by: Onofre Pelletier M.D. 09/19/2017 10:04 AM Dictated Date/Time: 09/19/2017 9:49 AM
--- NOTE | 2017-09-19 10:06 | DIAGNOSTIC IMAGING REPORT ---
BILATERAL LOWER EXTREMITY VENOUS DOPPLER HISTORY: elevated D dimer R/o DVT COMPARISON STUDY: None. FINDINGS: There is normal compressibility, flow, and augmentation within the bilateral lower extremity deep venous systems. IMPRESSION: No DVT within the right or left lower extremity. Electronically signed by: Onofre Pelletier M.D. 09/19/2017 10:04 AM Dictated Date/Time: 09/19/2017 10:04 AM
--- NOTE | 2017-09-19 10:40 | NUR ---
Observational Note:Patient returned from Ultrasound/CT w/ Norma, PCU float nurse via bed. cylinder sander operator applied on. Will continue to monitor and update MD as needed. Call tijerina within reach.
--- NOTE | 2017-09-19 12:00 | NUR ---
Observational Note:Patient alert and oriented X 4, Denies Chest pain/discomfort/Syncope thus far, Vss. See EMR for full assessment. Systems unchanged thus far. PT/OT evaluate/Treat noted. athletic monitor applied on, NSR, Heart rate Low 70's noted. Will continue to monitor and update MD as needed. Call tijerina within reach.
--- NOTE | 2017-09-19 12:30 | NUR ---
Observational Note:Patient transferred to MRI via bed w/transportation staff members. Will continue to monitor and update MD as needed. Call tijerina within reach.
--- NOTE | 2017-09-19 13:26 | NUR ---
Case Management- Met with patient in room per physician consult. Patient reports she lives alone in a two story home but only lives on the first floor. There is one step to enter she reports she is independent with all adls using no devices to ambulate. She reports no unsteadiness no falling up until yesterday. She repots she still drives. Per patient she plans to be discharged after her mri. She denies needs to this disability case manager. She does not feel she needs medical equipment and does not need homehealth or rehab. CM following
--- NOTE | 2017-09-19 13:30 | NUR ---
Observational Note: Patient returned from MRI w/ staff members. site monitor applied on, NSR, heart rate mid 60's. Will continue to monitor and update MD as needed. Call tijerina within reach.
--- NOTE | 2017-09-19 15:34 | DIAGNOSTIC IMAGING REPORT ---
BRAIN WITHOUT CONTRAST HISTORY: Mental status change syncope TECHNIQUE: Multiplanar multisequence MRI of the brain was performed without the use of contrast. COMPARISON STUDY: 09/19/2017 FINDINGS: There are no areas of restricted diffusion to suggest acute infarction. The midline structures are intact. The paranasal sinuses are clear. The mastoid air cells are clear. The ventricles and sulci are within normal limits for age. There is no mass, hematoma, midline shift. The major vascular flow-voids at the skull base are well maintained. Findings of age-related atrophy. Chiari I malformation. Focus of subtle increase in signal posterior central kristian felt to be artifactual. Several punctate foci of increased signal within the periventricular deep white matter regions as well as cerebellar hemispheres consistent chronic small vessel change. IMPRESSION: 1. No acute intracranial ischemic event. 2. Moderate chronic small vessel change of the cerebellar as well as cerebral hemispheres. 3. Chiari 1 malformation. The above report was generated using voice recognition software. It may contain grammatical, syntax or spelling errors. Electronically signed by: Landon Alejo M.D. 09/19/2017 3:32 PM Dictated Date/Time: 09/19/2017 3:29 PM
--- NOTE | 2017-09-19 15:47 | ELECTROENCEPHALOGRAPH REPORT ---
REQUESTING: Dr. Steven. CLINICAL DIAGNOSIS: Syncope versus seizures. EEG DIAGNOSIS: Essentially normal during wakefulness and brief duration of drowsiness. DESCRIPTION OF TRACING: This EEG was done as a bedside recording and is of reasonable technical quality. As the tracing progresses, there are a number of muscle movement artifacts which are observed on the video recording of patient movement and behavior as well, but otherwise the tracing is relatively interpretable. Photic stimulation is performed. Drowsiness was recorded episodically, but never sustained and fully developed stages of light sleep were not seen. During wakefulness, there is evidence for a background rhythm in the alpha range of about 9-10 Hz of maximum frequency and 30 microvolts of maximum amplitude. This is maximum posterior head regions bilaterally symmetrical. Polymorphic mid frequency theta activity modest amplitude is seen over all head regions maximum in the central regions but seen in a symmetrical fashion. Anterior head region maximum bilaterally symmetrical low voltage fast activity in the beta range is present. Episodically there appears to be some slow wave activity developing throughout the tracing in the background rhythm and the alpha range begins to shift in theta ranges. This corresponds to what appears to be drowsiness both on the video analysis and on the EEG, but these periods are relatively few and far between. There is also evidence episodically for what appears to be frontal intermittent moderate rhythmic delta activity which may be a normal finding in individuals of this age but could also correlate with some subcortical encephalopathic changes. At no time during the waking tracing is there evidence for potentially epileptogenic activity in the form of polyspike or spike wave bursts, focal sharp waves or focal spikes. Photic stimulation provokes a modest driving response without a photomyogenic or photoparoxysmal component. INTERPRETATION: This EEG is essentially normal during wakefulness and drowsiness. There are episodes of frontal intermittent moderate rhythmic delta activity which can be seen in elderly individuals, but are otherwise nonspecific. At times, these discharges do correlate with subcortical encephalopathy such as a leukoencephalopathy, but are not in and of themselves evidence for ongoing seizure activity and otherwise the tracing is free of potentially epileptogenic activity and shows no focal or lateralizing abnormalities. [facility]
--- NOTE | 2017-09-19 16:00 | NUR ---
OBS: The patient is alert and oriented x4, denies pain, nausea and shortness of breath and verbalizes desire to be discharged. Dr. Mueller aware and awaiting consults from neuro and cardio. The patient's right antecubital peripheral IV site is intact and asymptomatic, with normal saline infusing at 75ml/hr. Vital signs are stable on room air and the patient is in normal sinus rhythm on the cloth pattern maker. The patient's sister is at the bedside and awaiting physician visits. Call tijerina is within reach.
[2017-09-19] MEDS ORDERED: REFRESH OPTIVE EYE OP SCH (17:00)
--- NOTE | 2017-09-19 17:05 | Discharge Instructions ---
Discharge Instructions Date of Service Sep 19, 2017. Admission Reason for Admission: Syncope Discharge Discharge Diagnosis / Problem: SYNCOPE /FALL /LEFT ORBITAL FRACTURE, LEFT MAXILLARY SINUS FRACTURE Discharge Goals Goal(s): Decrease discomfort, Increase independence, Improve disease control, Diagnostic testing, Therapeutic intervention Activity Recommendations Activity Limitations: as noted below ( TOLERATED ) . Instructions / Follow-Up Instructions / Follow-Up HOSPITAL FOLLOW UP : 09/26/2017 1:00 PM Inés Byrd DO [facility] ( DR GEORGE IS OUT OF OFFICE NEXT WEEK ) YOU WILL NEED REFERRAL FOR CARDIOLOGY DR LINO FOR LOOP RECORDER CARDIOLOGY FOLLOW UP : 10/16/2017 1:00 PM Chloe Estevez PA-C Cardiology, [facility] ENT FOLLOW UP WITH DR PRECIADO IN 2-3 WEEKS DO NOT TAKE ASPIRIN , PLEASE NOTIFY DR PRECIADO IF YOU NOTICE SWELLING AROUND YOUR EYE , PAIN OR EXPERIENCING DOUBLE VISION FOLLOW UP WITH NEUROLOGY DR LAYNE/PAVEL DALTON PA-C IN OFFICE FOR EXTENDED EEG TO RULE OUT SEIZURE Current Hospital Diet Patient's current hospital diet: AHA Diet (Heart Healthy) Discharge Diet Recommended Diet: AHA Diet (Heart Healthy) Pending Studies Studies pending at discharge: no Medical Emergencies . Who to Call and When: Medical Emergencies: If at any time you feel your situation is an emergency, please call 911 immediately. . Non-Emergent Contact Non-Emergency issues call your: Primary Care Provider . . "Provider Documentation" section prepared by Sapna Mueller. . VTE Core Measure Inpt VTE Proph given/why not?: SCD's
[2017-09-19] MEDS ORDERED: DXY100 PO (17:14)
[2017-09-19] MEDS ORDERED: DOXYCYCLINE HYCLATE 100 MG CAP PO STA (17:15)
--- NOTE | 2017-09-19 17:17 | Discharge Summary ---
Discharge Summary Date of Service Sep 19, 2017. Discharge Summary Admission Date: Sep 18, 2017 at 22:49 Discharge Date: Sep 19, 2017 Discharge Disposition: Home Principal Diagnosis: SYNCOPE /FALL /LEFT ORBITAL FRACTURE, LEFT MAXILLARY SINUS FRACTURE Procedures: CTA OF CHEST : IMPRESSION: 1. No evidence for pulmonary embolus with limitations as described above. 2. The heart is mildly enlarged. 3. Bibasilar linear densities which favor subsegmental atelectasis. 4. Old, healed left scapular fracture. This accounts for the chest x-ray abnormality. 5. Mild subcutaneous edema within the left upper chest. This is of uncertain clinical significance. 6. A 3 mm indeterminate pulmonary nodule within the right upper lobe ECHO: * The left ventricle is normal in size. * There is normal left ventricular wall thickness. * Ejection Fraction = 55-60%. * The right ventricular systolic function is normal. * The left atrial size is normal. * Right atrial size is normal. * There is mild tricuspid regurgitation. MRI OF BRAIN : 1. No acute intracranial ischemic event. 2. Moderate chronic small vessel change of the cerebellar as well as cerebral hemispheres. 3. Chiari [address] : IMPRESSION: 1. There is a nondepressed fracture of the left orbital floor. 2. There is comminuted fracture involving the posterior wall of the left maxillary antrum with layering blood products within the left maxillary sinus. 3. No additional facial bone fracture is seen. 4. Left facial soft tissue injuries as above. Consultations: NEUROLOGY DR LAYNE ENT -[facility] Medication Reconciliation New Medications: Doxycycline Hyclate (Doxycycline Hyclate) 100 Mg Cap 1 TAB PO BID17 for 7 Days, #21 TABS Continued Medications: Carboxymethylcellulose-Glyceri (Refresh Optive Advanced) 1 Kasey Kasey 1 DROP OPB QID Cyclosporine (Ophth) (Restasis) 0.05 % Emu 1 DROP OP BID, BTL Ketorolac Tromethamine (Ophth) (Acular Ls) 0.4 % Kasey 1 DROP OPR BID Use 1 drop in the right eye 4 times daily as needed after injection. Levothyroxine Sodium (Synthroid) 25 Mcg Tab 100 MCG PO DAILY, TAB Multiple Vitamins W/ Minerals (Preservision Areds) 1 Cap Cap 1 CAP PO BID Discontinued Medications: Aspirin (Aspirin Ec) 81 Mg Tab 81 MG PO DAILY Referrals At Discharge Follow up Referrals: Marine Designer Referral - Please Call For Appointment with Toma Lino D.O. Physician Referral - Within 6 Weeks with Leanne Howe M.D. Admission Information HPI (per Admitting provider): 72 y/o female with history of Mitral Regurgitation, Hypothyroidism, HLD presenting with syncope. Patient was admitted last year with episodes of altered mental status, Neurology was consulted, work up including MRI brain and EEG was unrevealing. She was apparently doing well until the day of admission. At around 3pm, the patient was resting in bed, reading a magazine, and apparently, she found herself on the floor, caught between the bed and the nightstand, at 6pm. She denied being confused and was able to call her sister for help. Denies dizziness, palpitations, chest pain before the event. At the ER, patient CT head and CT neck were unrevealing. CT maxillofacial showed left orbital and maxillary fractures. On exam, patient seen resting in bed, not in distress. Reports mild pain on the left periorbital region and frontal headache. Otherwise denies other symptoms. Physical Exam (per Admitting): General Appearance: WD/WN, no apparent distress Head: normocephalic, atraumatic Eyes: PERRL, EOMI, sclerae normal, + pertinent finding ((+) left inferior periorbital hematoma and swelling) ENT: normal ENT inspection, hearing grossly normal, pharynx normal Neck: supple, no adenopathy, thyroid normal, no JVD, trachea midline Respiratory/Chest: chest non-tender, lungs clear, normal breath sounds, no respiratory distress, no accessory muscle use Cardiovascular: regular rate, rhythm, no edema, no JVD, no murmur Abdomen/GI: normal bowel sounds, non tender, soft Back: normal inspection, no CVA tenderness Extremities/Musculoskelatal: normal inspection, no calf tenderness, no pedal edema, normal range of motion, non-tender Neurologic/Psych: ware carrier II-XII nml as tested, no motor/sensory deficits, alert , normal mood/affect, oriented x 3 Skin: normal color, warm/dry, no rash Lymphatic: no adenopathy Hospital Course 72 y/o female with history of Mitral Regurgitation, Hypothyroidism, HLD presenting with syncope. -feels fine this AM , no headache , dizzy spell or visual problem very eager to be discharged home P/E: GEN ; no apparent distress, anxious HEENT : large ecchymosis at the left periorbital area , with swelling on left upper cheek , tenderness on left maxillary sinus area -no trauma noted in head or scalp HT : regular S1/S2 , no lower ext edema Lungs : clear to auscultate, no wheeze or rales Abdomen ; soft, non tender Ext ; no rash or deformity neuro; no focal neurological deficit Date Time Temp Pulse Resp B/P (MAP) Pulse Ox O2 Delivery O2 Flow Rate FiO2 09/19/17 17:34 36.3 78 18 95 Room Air 09/19/17 15:19 36.3 78 18 142/69 (93) 95 Room Air 09/19/17 14:11 71 97 09/19/17 12:00 Room Air 09/19/17 11:40 36.7 70 18 145/73 (97) 97 Room Air 09/19/17 08:00 95 Room Air 09/19/17 07:39 36.4 71 18 125/69 (87) 95 Room Air SYNCOPE R/O ARRHYTHMIA -had 2 other episodes in past -one leading to fracture of scapula - episode without any prodrome - no arrhythmia noted on tele -ECHO no valvular abnormality noted _CTA chest /Lower ext Doppler -no PE or DVT -MRI of brain -no acute change -EEG -no seizure like activity - appreciate input form Neurology and Cardiology -pt will benefit with implantable loop recorder to assess cardiac arrhythmia leading to syncope event ( had Holter monitor in past -no significant arrhythmia noted ) -pt is very eager to be discharged home LEFT ORBITAL FRACTURE, LEFT MAXILLARY SINUS s/p FALL - given Clinda at the ER - ENT consulted-appreciate input -stable non displaced Fx, no intervention needed -recommend Abx for 1 week -ordered for Doxycycline ( pt is allergic to PCN ) pt is asked not to take -Aspirin -Periorbital ecchymosis , presence of blood in maxillary sinus -will need to contact ENT with any event of increased orbital pain , swelling or diplopia HYPOTHYROIDISM - TSH low normal Free t4 - resume L thyroxine with prior dose DVT PROPHYLAXIS SCDs avoid Pharmacological anticoagulation due periorbital ecchymosis/Maxillary sinus Fx with blood in sinus FULL CODE per patient DISPOSITION eager to be discharged home today evaluated by Cardiology , Neurology and ENT stable to be discharged home Cardiology team will contact Pt to arrange for placement of loop recorder by Dr Lino Discharge Instructions Discharge Instructions Date of Service Sep 19, 2017. Admission Reason for Admission: Syncope Discharge Discharge Diagnosis / Problem: SYNCOPE /FALL /LEFT ORBITAL FRACTURE, LEFT MAXILLARY SINUS FRACTURE Discharge Goals Goal(s): Decrease discomfort, Increase independence, Improve disease control, Diagnostic testing, Therapeutic intervention Activity Recommendations Activity Limitations: as noted below ( TOLERATED ) . Instructions / Follow-Up Instructions / Follow-Up HOSPITAL FOLLOW UP : 09/26/2017 1:00 PM Inés Byrd, [facility] ( DR GEORGE IS OUT OF OFFICE NEXT WEEK ) YOU WILL NEED REFERRAL FOR CARDIOLOGY DR LINO FOR LOOP RECORDER CARDIOLOGY FOLLOW UP : 10/16/2017 1:00 PM Chloe Estevez PA-C Cardiology, [facility] ENT FOLLOW UP WITH DR HOWE IN 2-3 WEEKS DO NOT TAKE ASPIRIN , PLEASE NOTIFY DR HOWE IF YOU NOTICE SWELLING AROUND YOUR EYE , PAIN OR EXPERIENCING DOUBLE VISION FOLLOW UP WITH NEUROLOGY DR LAYNE/PAVEL DALTON PA-C IN OFFICE FOR EXTENDED EEG TO RULE OUT SEIZURE Current Hospital Diet Patient's current hospital diet: AHA Diet (Heart Healthy) Discharge Diet Recommended Diet: AHA Diet (Heart Healthy) Pending Studies Studies pending at discharge: no Medical Emergencies . Who to Call and When: Medical Emergencies: If at any time you feel your situation is an emergency, please call 911 immediately. . Non-Emergent Contact Non-Emergency issues call your: Primary Care Provider . . "Provider Documentation" section prepared by Sapna Mueller. . VTE Core Measure Inpt VTE Proph given/why not?: SCD's Additional Copies To Inés Byrd,Jeff Sotelo, DO
--- NOTE | 2017-09-19 17:19 | CONSULTATION REPORT ---
DATE OF CONSULTATION: 09/19/2017 DIAGNOSIS: Left orbital floor fracture, nondisplaced. HISTORY OF PRESENT ILLNESS: This is a 72-year-old lady who presented to the Emergency Room with loss of consciousness when she fell while she was reading by her bed, striking her head and also the left eye. Interestingly, this is the patient's third episode of syncope and she has been thoroughly evaluated by Dr. Steven and the machine feeder raw stock at [facility] with no findings of the cause. Specifically relating to her left eye, she does have periorbital ecchymosis, but there is no double vision. Specifically also, she denies having any vertigo or ear problems. PAST MEDICAL HISTORY: As noted on chart with a history of CVA and altered mental status previously with macular degeneration and retinopathy. MEDICATIONS: As noted on chart. ALLERGIES: AMPICILLIN AND LATEX. PHYSICAL EXAMINATION: GENERAL: Elderly female in no acute distress, oriented. HEENT: Head: Normocephalic. There is ecchymosis all around the left eye. There is also some ecchymosis of the left face. Otherwise, the eyes show pupils equal and reactive with normal extraocular movements with no diplopia and no sign of entrapment. Ears show intact tympanic membranes. The nasal passages show septal deviation to the left with some dried blood in the left naris. The throat is normal. NECK: Supple. NEUROLOGIC: Examination by Dr. Thomas Steven was normal with no focal deficits and specifically, no entrapment of the left eye and no symptoms of diplopia. The CT scan was reviewed. This does indeed show a nondepressed fracture of the left orbital floor and left posterior orbit at the back wall of the left maxillary sinus with fluid level in the left maxillary sinus. IMPRESSION: Left maxilla fracture with nondepressed fracture of the left orbital floor. RECOMMENDATIONS: I would recommend covering her with antibiotics for the blood in the left maxillary antrum. She should be evaluated by an oculoplastic surgeon if she has any symptoms of diplopia. The patient and her family including her sister were instructed to call me or her [facility] doctors if there are any symptoms of diplopia. SHIREEN
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
--- NOTE | 2017-09-19 18:00 | NUR ---
OBS/A: The patient is alert and oriented x4, denies pain, nausea and shortness of breath. The patient is being discharged to home with self-care. Vital signs are stable on room air, the patient was in normal sinus rhythm on the traffic monitor specialist. The patient's right antecubital peripheral IV site was discontinued, catheter tip intact. The patient is removed from the traffic monitor specialist. Patient's own medications were returned to the patient from pharmacy. The patient received her dose of doxycycline before discharge per Dr. Mueller's instructions. Medication changes, follow-up appointments and home safety instructions were reviewed with the patient and the patient's sister. Both verbalize understanding. Belongings are collected and being sent home with the patient. The patient declines a wheelchair ride to the main entrance.
--- NOTE | 2017-09-19 18:45 | ECHOCARDIOGRAM REPORT ---
*NOTICE TO RECEIVING CONSTITUTION PARTY AGENCY This information is strictly Confidential and protected under [place] law. [place] law prohibits you from making any further disclosure of this information unless further disclosure is expressly permitted by the written consent of the person to whom it pertains or is authorized by law. A general authorization for the release of medical or other information is not sufficient for this purpose. Hospital accepts no responsibility if the information is made available to any other person, INCLUDING THE PATIENT. Interpretation Summary * Name: MELVINA WILLIAMSON Study Date: 09/19/2017 07:16 AM BP: 125/69 mmHg * Patient Location: [facility]\S\N276\S\2 HR: 71 * : 1945 (M/d/yyyy) Gender: Female Height: 64 in * Age: 72 yrs Ethnicity: CA Weight: 140 lb * Ordering Physician: Marcus Arriola * Referring Physician: Self, Referred * Performed By: Leonela Roman RDCS * * Reason For Study: SYNCOPE * BSA: 1.7 m2 * -- Conclusions -- * The left ventricle is normal in size. * There is normal left ventricular wall thickness. * Ejection Fraction = 55-60%. * The right ventricular systolic function is normal. * The left atrial size is normal. * Right atrial size is normal. * There is mild tricuspid regurgitation. Procedure Details * A complete two-dimensional transthoracic echocardiogram was performed (2D, M-mode, Doppler and color flow Doppler). Left Ventricle * The left ventricle is normal in size. * There is normal left ventricular wall thickness. * Ejection Fraction = 55-60%. * The left ventricular wall motion is normal. Right Ventricle * The right ventricle is normal size. * The right ventricular systolic function is normal. Atria * The left atrial size is normal. * Right atrial size is normal. * The interatrial septum is intact with no evidence for an atrial septal defect. Mitral Valve * The mitral valve anatomy is normal. * Significant mitral regurgitation is absent. Tricuspid Valve * The tricuspid valve anatomy is normal. * There is mild tricuspid regurgitation. Aortic Valve * The aortic valve is tricuspid. The leaflet thickness if normal. There is no aortic stenosis, and no significant insufficiency. * No hemodynamically significant valvular aortic stenosis. * Trace aortic regurgitation. Pulmonic Valve * The pulmonic valve is not well visualized. * There is no significant pulmonary regurgitation. Great Vessels * The aortic root and proximal ascending aorta are normal sized. Pericardium/Pleural * There is no pericardial effusion. Left Ventricular Diastolic Function * Grade I diastolic dysfunction, (abnormal relaxation pattern). MMode 2D Measurements and Calculations IVSd 0.93 cm IVSs 1.2 cm LVIDd 4.9 cm LVIDs 3.4 cm LVPWd 1.1 cm LVPWs 1.3 cm IVS/LVPW 0.82 FS 30.1 % EDV(Teich) 112.3 ml ESV(Teich) 48.0 ml EF(Teich) 57.3 % EDV(cubed) 117.0 ml ESV(cubed) 39.9 ml EF(cubed) 65.9 % % IVS thick 32.2 % % LVPW thick 19.3 % LV mass(C)d 182.8 grams LV mass(C)dI 108.8 grams/m\S\2 LV mass(C)s 146.8 grams LV mass(C)sI 87.3 grams/m\S\2 SV(Teich) 64.3 ml SI(Teich) 38.3 ml/m\S\2 SV(cubed) 77.1 ml SI(cubed) 45.9 ml/m\S\2 Ao root diam 2.8 cm Ao root area 6.0 cm\S\2 LA dimension 3.7 cm LA/Ao 1.3 LVAd ap4 27.3 cm\S\2 LVLd ap4 7.3 cm EDV(MOD-sp4) 85.8 ml EDV(sp4-el) 86.2 ml LVAs ap4 16.4 cm\S\2 LVLs ap4 6.7 cm ESV(MOD-sp4) 37.5 ml ESV(sp4-el) 34.0 ml EF(MOD-sp4) 56.3 % EF(sp4-el) 60.5 % LVAd ap2 24.4 cm\S\2 LVLd ap2 7.4 cm EDV(MOD-sp2) 69.5 ml EDV(sp2-el) 68.6 ml LVAs ap2 14.6 cm\S\2 LVLs ap2 6.6 cm ESV(MOD-sp2) 29.2 ml ESV(sp2-el) 27.6 ml EF(MOD-sp2) 58.1 % EF(sp2-el) 59.8 % LVLd %diff 0.75 % EDV(MOD-bp) 77.6 ml LVLs %diff -2.58 % ESV(MOD-bp) 32.9 ml EF(MOD-bp) 57.6 % SV(MOD-sp4) 48.3 ml SI(MOD-sp4) 28.7 ml/m\S\2 SV(MOD-sp2) 40.4 ml SI(MOD-sp2) 24.0 ml/m\S\2 SV(MOD-bp) 44.6 ml SI(MOD-bp) 26.6 ml/m\S\2 SV(sp4-el) 52.2 ml SI(sp4-el) 31.0 ml/m\S\2 SV(sp2-el) 41.1 ml SI(sp2-el) 24.4 ml/m\S\2 Doppler Measurements and Calculations MV E max yayo 105.2 cm/sec MV A max yayo 139.7 cm/sec MV E/A 0.75 MV dec time 0.40 sec Ao V2 max 176.7 cm/sec Ao max PG 12.5 mmHg Ao max PG (full) 7.4 mmHg LV V1 max PG 5.1 mmHg LV V1 max 113.2 cm/sec TR max yayo 265.3 cm/sec
--- NOTE | 2017-09-19 20:45 | CARDIOLOGY CONSULTATION ---
DATE OF CONSULTATION: 09/19/2017 CONSULTATION FOR: [facility]. REASON FOR CONSULTATION: Syncope. HISTORY OF PRESENT ILLNESS: The patient is a 72-year-old female who has a history of multiple syncopal events, starting in 2014. The first episode she had a scalp injury and then in 2016, almost a year and a half after the first episode she had another syncopal event where she sustained a humeral fracture. She then had an event in May of 2016 where she had a witnessed collapse without loss of consciousness. The patient has had an extensive neurologic workup as well as cardiac workup including event monitors, which have failed to show any significant arrhythmias. The patient was readmitted with another syncopal event. She was at home, reading a magazine in bed. She found herself between the bed and a nightstand. She did sustain left orbital and maxillary fracture, which were stable. Neurology has been consulted and has no additional recommendations. Since admission, the patient has been stable without evidence of arrhythmias. ALLERGIES: AMPICILLIN, LATEX, MILK AND PENICILLIN. PAST MEDICAL HISTORY: The patient has a history of glaucoma. She carries a diagnosis of rheumatic heart disease with moderate mitral regurgitation. Her last echocardiogram shows her left ventricular ejection fraction to be 60-65%. SOCIAL HISTORY: She is a never smoker. She is single and lives alone. FAMILY MEDICAL HISTORY: Noncontributory. REVIEW OF SYSTEMS: A 10-point review of systems is negative except for the history of chief complaint. PHYSICAL EXAMINATION: GENERAL: She is alert and oriented in no acute distress. VITAL SIGNS: Blood pressure is 140/70, pulse is regular at 78 beats per minute. She is afebrile. HEENT: She has contusions over the left eye and maxillary area. NECK: The neck veins are flat. Carotids have good upstrokes bilaterally without bruits. Thyroid is nonpalpable. RESPIRATORY: Breath sounds equal bilaterally and clear to auscultation. CARDIOVASCULAR: Heart has a regular rhythm. Normal S1, S2. No S3, S4. No cardiac rubs or murmurs. GASTROINTESTINAL: Abdomen is soft, nontender without organomegaly. EXTREMITIES: Free of edema, digit clubbing, or cyanosis. NEUROLOGIC: Grossly intact. SKIN: Warm to touch. LYMPH NODES: Negative to palpation. LABORATORY AND IMAGING DATA: EKG reveals sinus rhythm with nonspecific ST and T-wave changes. Hemoglobin is 14.3. Potassium is 3.9, creatinine is 0.82. IMPRESSION: Recurrent syncopal episodes of undetermined etiology. RECOMMENDATIONS: From a cardiac standpoint, I think the only thing that can be done would be for the patient to have an implanted loop monitor. This could be a cardiac arrhythmia that occurs very infrequently but when it occurs, it is a serious event for her. The patient is anxious to go home. I think it is not unreasonable to discharge her and will have her follow up as an outpatient with electrophysiology to have a loop monitor implanted.
[2017-09-19] MEDS ORDERED: CycloSPORINE 0.05% 0.4 ML 30 UDV/BOX OP SCH (21:00)
--- NOTE | 2017-10-02 09:39 | EDITING REQUIRED CODING QUERY ---
CQSUPPORTING DIAGNOSIS NEEDED A supporting diagnosis is required for the test/procedure performed on this patient in order for us to be reimbursed by the patient's insurance. Please provide a supporting diagnosis for the following test/procedure listed below next to the test name along with your signature. *If there is no additional diagnosis for this patient that would support the following test/procedure please document that below next to the test/procedure. Test(s)/Procedure(s) that require a supporting diagnosis: DOS 09/19/17 NON-INVASIVE PERIPHERAL VENOUS STUDY To rule out DVT -presented with Syncope -needed to evaluate for possible thromboembolic phenomenon Provider Signature: Sapna Mueller Date: _10/01/17 Thank you Betsey [facility] Management Once completed, please kindly fax back to [phone] For questions please call [phone]
== END 2017-09-19 18:00 | disposition home or self-care (01) ==
LOC: C.EDB 19:25 → C.MED 22:49 → ENRESERV 23:11
PROVIDERS: ADMIT Internal Medicine; ATTEND Hospitalist
DX: R55 Syncope and collapse (principal); S02.40DA Maxillary fracture, left side, initial encounter for closed fracture; S02.82XA Fracture of other specified skull and facial bones, left side, initial encounter for closed fracture; W18.09XA Striking against other object with subsequent fall, initial encounter; I05.1 Rheumatic mitral insufficiency; H35.711 Central serous chorioretinopathy, right eye; E03.9 Hypothyroidism, unspecified; Z86.73 Personal history of transient ischemic attack (TIA), and cerebral infarction without residual deficits; Z79.82 Long term (current) use of aspirin; Z79.899 Other long term (current) drug therapy; R79.1 Abnormal coagulation profile

== ENCOUNTER → 2017-10-18 | Outpatient (CLI) | payer MEDICARE ==
[~2017-10-18] VITALS: Ht 163.8 cm; Wt 64.5 kg
[~2017-10-18] MED LIST changes: -ASCA500 PO; -CALC1TAB9 PO; -CPR500 PO; -MULT-845 PO
[2017-10-18 13:49] VITALS: BP 138/78; PULSE 68; Ht 163.8 cm; Wt 64.5 kg
== END | disposition home or self-care (01) ==
LOC: C.NEUR 13:32
PROVIDERS: ATTEND Internal Medicine Pulmonary Disease
DX: R55 Syncope and collapse (principal); R06.83 Snoring; G47.52 REM sleep behavior disorder

== ENCOUNTER → 2017-11-11 | Outpatient (CLI) | payer MEDICARE ==
--- NOTE | 2017-11-12 05:56 | PAP/PSG TECHNICIAN REPORT ---
[facility] Mortgage Loan Interviewer Polysomnogram Report Study name: None Report date: 11/12/2017 Study date: 11/11/2017 Referring Physician: Thomas Penn M.D. Name: MELVINA WILLIAMSON Interpreting Physician: Thomas Penn M.D. Date of : 1945 Mortgage Loan Interviewer: Patti Alex [facility]. Sex: Female Age: 72 StudyType: PSG Weight: 142 lbs Height: 72 years, Height 5' 4.5" Neck Circum:13.5inches BMI: 24 Medications: Clindamycin HCl 150mg, Ketorolac Tromethamine 0.4% Soln, Levothyroxine Sodium 100mcg, PreserVision AREDS 2 Oral Caps, Refresh Optive 1-0.9% ophthalmalic Gel, Restasis Multidose 0.05% Patient History Study started on room air with no ETCO2 monitoring. 72 yr old female here tonight for a diagnostic psg. She has been having episodes of injury occurring during sleep over the past 1-2 years. She finds herself out of bed on the floor and often injured. It first began in the fall of 2014.She does snore. She has a family history of sleep apnea. She has a cardiac exercise physiologist that has been implanted in her chest. Her ESS=7/24. Neck circ=13.5inches. Parameters Monitored NPSG: E1-M2, E2-M1, Fp1-M2, Fp2-M1, F3-M2, F4-M2, F4-M1, C3-M2, C4-M2, C4-M1, O1-M2, O2-M2, O2-M1, T3-M2, T4-M1, P3-M2, P4-M1, CHIN1, CHIN2, HR, EKG, Legs, PFLOW, SNOR, FLOW, CFLOW, Tidal Volume, THOR, ABDO, SpO2, PLTH, CPRESS, ETCO2 Wave, ETCO2, pH Sleep Architecture Sleep Stages Time at Lights Off 11:03:24 PM STAGES Time (min.) TST (%) Time at Lights On 5:25:54 AM Wake 166.5 -- Total Recording Time (TRT) 382.50 min. N1 6.0 3 Total Sleep Period (TSP) 223.5 min. N2 114.0 53 Total Sleep Time (TST) 216.0min. N3 70.0 32 Awake Time 166.5 min. REM 26.0 12 Wake after Sleep Onset 161.5 min. Sleep Efficiency (SE) 56 % Sleep Onset Latency (LESLY) 5.0 min. Number of Stage 1 Shifts None Awakenings 12 Stage Changes 45 Number of REM periods 4 REM 26.0 12 REM Latency 166.0 min. NREM 190.0 88 Body Position Analysis Supine Right Left Side Prone Vertical Total Sleep Time (min.) 382.5 0.0 0.0 0.00 0.0 0.0 Total Sleep Time (%) 100% 0% 0% 0 0% N/A% Total Sleep Time REM (min.) 26.0 0.0 0.0 None 0.0 0.0 Total Sleep Time NREM (min.) 190.0 0.0 0.0 None 0.0 0.0 Intermittent Wake (min.) 166.5 0.0 0.0 None 0.0 0.0 Total Sleep Period (%) 100% None None None None None Arousals Myoclonus (PLM) * Events Count Index Events Count Index Spontaneous 9 3 Events Awake (PLMW) 132 47.6 Respiratory 4 1.4 Events Asleep w/ Arousal (PLMA) 4 1.1 PLM 4 1 Events Asleep w/o Arousal (PLMS) 36 10.0 Snoring 0 0 Total Asleep 40 11.1 Total 17 5 Total 172 27 Respiratory Analysis * CA OA MA CH H RERA Total Count 2 4 0 0 31 0 37 Index 0.6 1.1 0.0 0 8.6 0 10.3 Mean Duration 19.5 23.1 0.0 0.00 28.5 0.0 27.4 Longest Duration 26.2 31.4 0.0 0.00 0.0 0.0 65.5 Respiratory Event Summary Total Supine ~Supine Right Left Prone REM NREM Apneas Count 6 6 N/A N/A N/A N/A 0 6 Index 1.7 2 N/A N/A N/A N/A 0 2 Hypopneas (4% Desat) Count 31 31 N/A N/A N/A N/A 4 27 Index 8.6 8.6 N/A N/A N/A N/A 9.2 8.5 Apneas & All Hypopneas Count 37 37 N/A N/A N/A N/A 4 33 Index 10.3 10 N/A N/A N/A N/A 9.2 10.4 Respiratory Events (Long Term Care Pharmacist+All Hyp+RERA) Count 37 37 N/A N/A N/A N/A 4 33 Index 10.3 10 N/A N/A N/A N/A 9.2 10.4 Respiratory Related Arousal Count 4 37 N/A N/A N/A N/A 1 4 Index 1.4 1 N/A N/A N/A N/A 2 1 Snoring Analysis Supine Right Left Prone REM NREM Total Snore duration 2.1 min Snores count 81 N/A N/A N/A 7 74 81 Snore mean duration 1.6 Sec Snores index 23 N/A N/A N/A 16.2 23.4 22.5 TST with snoring (%) 1.0% Desaturation Event Summary: Minimum %SpO2 Event Count Mean/Min/Max Duration(sec.) Desaturation Index % Time In Bed > 90 53 24.8 / 11.5 / 50.0 14.7 58.0 86 - 90 25 21.1 / 11.5 / 38.8 9.8 40.9 81 - 85 1 11.3 / 11.3 / 11.3 16.2 1.0 76 - 80 0 N/A 0.0 0.1 71 - 75 0 N/A 0.0 0.0 66 - 70 0 N/A 0.0 0.0 61 - 65 0 N/A 0.0 0.0 56 - 60 0 N/A 0.0 0.0 51 - 55 0 N/A 0.0 0.0 < 50 0 N/A 0.0 0.0 Total REM NREM Awake <50% 0.0 min. 0.0 min. 0.0 min. 0.0 min. 51 - 60% 0.0 min. 0.0 min. 0.0 min. 0.0 min. 61 - 70% 0.0 min. 0.0 min. 0.0 min. 0.0 min. 71 - 80% 0.4 min. 0.1 min. 0.2 min. 0.0 min. 81 - 90% 156.4 min. 9.9 min. 140.5 min. 6.0 min. 91 - 100% 216.7 min. 16.0 min. 49.2 min. 151.5 min. Average 91 91 90 92 Minimum SpO2 78 79 78 81 Desaturation Event Index 9.3 20.8 12.9 3.6 # Desat. Events below 89% 43 4 35 4 Time(%) with Saturation below 89% 7.7 0.5 6.6 0.5 Time(min.) with Saturation below 89% 28.6 2.0 24.8 1.8 Time (mins) REM (mins) NREM (mins) % of TST SpO2 Below 90% 50 9 N41 38.4 SpO2 Below 88% 16 0 0 4 Heart Rate Analysis Min (bpm) Max (bpm) Average (bpm) Awake 57 150 64 NREM 55 86 63 REM 56 71 60 Overall 55 86 63 Supplemental O2 Values Minimum O2 level: None Value Start Time End Time Mortgage Loan Interviewer Comments Ms. Williamson slept in the supine position. No cardiac arrhythmia noted. Some leg movements were noted but no arm movements were noted. No bruxism noted. Snoring was noted and scored as a 1 on a scale of 1 through 5. (0=no snoring, 5=snoring loud enough to be heard through a closed door or down the hernandez way) She awoke to use the restroom once during the night and never went back to sleep. She stated that she went to sleep earlier than she would have at home but she slept about the same as usual but she did not have her dog with her. The final report will be interpreted and signed by a sleep physician. The completed physician report will then be placed in the patient medical record. Therapy (cm H2O) 0 TIB (min.) 382.5 TST (min.) 216.0 Sleep Onset (min.) 5.0 REM Onset From Sleep (min.) 166.0 Sleep Efficiency % 56 Wakefulness (%) 44 Wakefulness (min.) 166.5 NREM 1 (%) 3 NREM 1 (min.) 6.0 NREM 2 (%) 53 NREM 2 (min.) 114.0 NREM 3 (%) 32 NREM 3 (min.) 70.0 REM (%) 12 REM (min.) 26.0 # Arousals 17 Arousal Index 5 # Snore 81 Snore Index 22.5 AHI 10.3 AHI Supine 10 AHI Non-Supine N/A NREM AHI 10.4 REM AHI 9.2 RDI 10.3 # Obstructive Apnea 4 # Central Apnea 2 # Mixed Apnea 0 # Hypopneas 31 RERAs 0 Total Respiratory Events 41 Time Below SpO2 89% (min.) 26.9 Mean NREM SpO2 (%) 90 Mean REM SpO2 (%) 91 Mean Sleep SpO2 (%) 90 Min NREM SpO2 (%) 78 Min REM SpO2 (%) 79 Position Supine (min.) 382.5 Position Non-supine (min.) 0.0 LM Index Sleep 11.1 LM Index NREM 9.8 LM Index REM 20.8 Mean Heart Rate (bpm) 63 Min Heart Rate (bpm) 55
--- NOTE | 2017-11-13 19:25 | POLYSOMNOGRAPH REPORT ---
CLINICAL DATA: A 72-year-old female with a BMI of [address] Byrd and myself for snoring, fatigue, and nocturnal injuries. SLEEP ARCHITECTURE: Total sleep period was 223.5 minutes. Total sleep time was 216 minutes divided between 190 minutes of non-REM sleep and 26 minutes of REM sleep. Sleep onset latency was 5 minutes. REM latency was 166 minutes. Sleep efficiency was 56%. Wake after sleep onset was 161.5 minutes. Sleep consisted of stage N1 3%, stage N2 53%, stage N3 32%, and REM 12%. AROUSAL DATA: 17 arousals were recorded for an index of 5 per hour. 9 were spontaneous. PLM DATA: 40 limb movements during sleep were noted for an index of 11.1 per hour with arousal index of 1.1 per hour. RESPIRATORY DATA: Mild sleep apnea was documented. The AHI was 10.3. There were 2 central and 4 obstructive apneic episodes. The longest apneic episode was 31.4 seconds. There were 31 hypopneic episodes with a mean duration of 28.5 seconds. OXIMETRY DATA: Nocturnal hypoxemia was seen. Oxygen gerald was 78%. Mean saturation was 91%. Time below 88% was 16 minutes. EKG: Heart rates ranged from 55-86 beats per minute. No arrhythmias were noted. ASSOCIATE PROGRAMMER'S COMMENTS: The patient slept supine. Occasional leg movements were noted, but no arm movements. No bruxism was noted. Snoring was rated 1 on a scale of 1 through 5. She awoke once to use the restroom and never went back to sleep.There was no evidence of increased muscle activity during REM sleep seen. IMPRESSION: Mild sleep apnea/hypopnea with nocturnal hypoxemia. RECOMMENDATIONS: The patient will be seen back in followup to consider treatment for sleep apnea. CPAP or auto CPAP may be of benefit. Clinical correlation is needed. [facility] HOSPITALKeturah
== END ==
LOC: C.NEUR 20:00
PROVIDERS: ATTEND Internal Medicine Pulmonary Disease
DX: G47.30 Sleep apnea, unspecified (principal); R09.02 Hypoxemia; E78.5 Hyperlipidemia, unspecified; G47.52 REM sleep behavior disorder

== ENCOUNTER → 2017-12-10 | Outpatient (CLI) | payer MEDICARE ==
[~2017-12-10] VITALS: Ht 163.8 cm; Wt 63.5 kg
[2017-12-10 15:09] VITALS: BP 147/76; PULSE 71; Ht 163.8 cm; Wt 63.5 kg
== END | disposition home or self-care (01) ==
LOC: C.NEUR 13:28
PROVIDERS: ATTEND Internal Medicine Pulmonary Disease
DX: G47.33 Obstructive sleep apnea (adult) (pediatric) (principal); Z88.0 Allergy status to penicillin; Z88.1 Allergy status to other antibiotic agents; Z91.040 Latex allergy status

== ENCOUNTER 2020-04-29 07:39 | Observation (INO) ==
[2020-04-29] MEDS ORDERED: SODIUM CHLORIDE 0.9% 1000ML 1,000 ML IV SCH ×2 (07:45→13:45)
[2020-04-29 08:14] LABS: Basophils # (auto) 0.01 K/uL (0-0.2); Basophils % (auto) 0.1 %; Eosinophils # (auto) 0.01 K/uL (0-0.5); Eosinophils % (auto) 0.1 %; Hemoglobin 14.5 g/dL (12.0-16.0); Immature Granulocytes # (auto) 0.03 K/uL (0.00-0.02); Immature Granulocytes % (auto) 0.3 %; Mean Corpuscular Hemoglobin 30.7 pg (25-34); Mean Corpuscular Hgb Conc 33.7 g/dL (32-36); Mean Corpuscular Volume 90.9 fL (80-100); Mean Platelet Volume 9.9 fL (7.4-10.4); Monocytes # (auto) 0.54 K/uL (0.11-0.59); Monocytes % (auto) 5.4 %; Neutrophils # (auto) 8.97 K/uL (1.4-6.5); Neutrophils % (auto) 90.1 %; Platelet Count 147 K/uL (130-400); RDW Coefficient of Variation 13.5 % (11.5-14.5); RDW Standard Deviation 44.9 fL (36.4-46.3); Red Blood Count 4.73 M/uL (4.2-5.4); White Blood Count 9.96 K/uL (4.8-10.8)
[2020-04-29 08:18] LABS: Appearance Urine Clear (Clear); Bacteria Urine Automated Negative (Negative); Bilirubin Urine Negative (Negative); Blood Urine Negative (Negative); Color Urine Yellow; Glucose Urine UA Negative (Negative); Ketones Urine Trace (Negative); Leukocyte Esterase Urine Negative (Negative); Nitrite Urine Negative (Negative); RBC Urine Automated 0-4 /hpf (0-4); Specific Gravity Urine 1.015 (1.000-1.030); Urobilinogen Urine Negative (Negative); WBC Urine Automated 0 /hpf (0-5); pH Urine 7.5 (4.5-7.5)
--- NOTE | 2020-04-29 08:23 | Emergency Department Note ---
History of Present Illness General Chief complaint: Fall Time Seen by Provider: 04/29/20 07:39 Source: patient, family (sister), EMS, RN notes reviewed and old records reviewed Mode of arrival: EMS Limitations: altered mental status History of Present Illness Provider complaint: Found on floor Onset (ago): hour(s) 1 Treatments prior to arrival: none This is a 74-year-old female who lives at home with her sister. The patient's sister reports that she noticed the patient's dog was barking this morning. She reports that the patient normally brings the dog out every morning at 5 AM and noted that the newspaper was still outside. She found the patient on the floor of her bedroom next to her bed incontinent of urine. EMS was summoned and the patient was brought to the emergency department. Upon arrival to the emergency department the patient denies any pain however is nonverbal. The patient sister reports that she has had similar episodes previously and nobody has been able to come up with a diagnosis. She reports that the patient has seen both neurology as well as cardiology. Home Medications Home Medications Medication Instructions Recorded Confirmed Type alendronate 70 mg PO TU 04/29/20 04/29/20 History atorvastatin 20 mg PO DAILY 04/29/20 04/29/20 History [id number] 1 drp OPHTHALMIC (EYE) BID 04/29/20 04/29/20 History [Refresh Optive Advanced] cyclosporine [Restasis] 1 drp OPB BID 04/29/20 04/29/20 History ketorolac 1 drp OPR BID 04/29/20 04/29/20 History levothyroxine 75 mcg PO DAILY 04/29/20 04/29/20 History vitamins A,C,U-smrv-jwllrh 1 tab PO BID 04/29/20 04/29/20 History [PreserVision AREDS] Allergies Allergy/AdvReac Type Severity Reaction Status Date / Time ampicillin Allergy Unknown . Verified 04/29/20 08:10 latex Allergy Unknown RASH Verified 04/29/20 08:10 milk Allergy Unknown GI ISSUES Verified 04/29/20 08:10 Penicillins Allergy Unknown . 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 EF 60-65%. Stage 1 diastolic dysfunction." On 10/08/14 11:30 Alondra Ray wrote "Echo 2009-moderate mitral regurgitation. EF 60-65%." Hx of basal cell carcinoma (Chronic) "L lower leg 2008" Hypothyroidism (Chronic) Macular degeneration (Chronic) Surgical History History of eye surgery (Chronic) History of eye surgery History of trabeculectomy Hx of tonsillectomy (Chronic) S/P tonsillectomy and adenoidectomy Family History Father Sudden cardiac Sister Thyroid disease Lupus erythematosus Unknown AMD (age related macular degeneration) Social History (Updated 04/29/20 @ 13:04 by Amita Gale PA-C) Smoking Status: Never smoker Hx Alcohol Use: Yes Alcohol type: wine Alcohol Intake Frequency: Monthly or Less Hx Substance Use: No Preferred Language: Cypriot Communication Ability: Effective Retirement Plan Specialist Required: Yes Beliefs That Will Affect Care: None Current Living Situation: Alone Other Information That Helps Us Care for You: No Feels Safe at Home: Yes Safety Concerns: Feels Safe At This Time Review of Systems A total of 10 systems reviewed and were otherwise negative Physical Exam Vital Signs Vital Signs - 24 hr 04/29/20 09:00 04/29/20 09:01 04/29/20 09:30 Pulse Rate 76 76 64 Pulse Rate from SpO2 Sensor 75 76 66 Respiratory Rate 13 18 13 Blood Pressure 149/75 H 150/69 H Blood Pressure Mean 84 76 Pulse Oximetry 99 98 99 Oxygen Delivery Method 04/29/20 09:31 04/29/20 10:00 04/29/20 10:01 Pulse Rate 66 68 68 Pulse Rate from SpO2 Sensor 66 Respiratory Rate 12 13 13 Blood Pressure 151/76 H Blood Pressure Mean 99 Pulse Oximetry 99 97 Oxygen Delivery Method Room Air 04/29/20 10:30 04/29/20 10:31 04/29/20 11:00 Pulse Rate 66 67 69 Pulse Rate from SpO2 Sensor 66 66 69 Respiratory Rate 13 14 19 Blood Pressure 144/71 H 125/75 Blood Pressure Mean 84 102 Pulse Oximetry 97 97 94 Oxygen Delivery Method 04/29/20 11:01 04/29/20 11:19 04/29/20 11:30 Pulse Rate 70 72 67 Pulse Rate from SpO2 Sensor 68 71 67 Respiratory Rate 12 15 12 Blood Pressure 125/75 137/71 Blood Pressure Mean 102 87 Pulse Oximetry 98 97 97 Oxygen Delivery Method 04/29/20 11:31 Pulse Rate 66 Pulse Rate from SpO2 Sensor 66 Respiratory Rate 12 Blood Pressure Blood Pressure Mean Pulse Oximetry 97 Oxygen Delivery Method VITAL SIGNS - Vital signs and nursing notes were reviewed. GENERAL - 74-year-old female appearing stated age who is in no acute distress. Nonverbal but nods head to questions. Incontinent of urine SKIN - Without rashes. HEAD - NC/AT. EYES - PERRL with EOMI bilaterally. Sclera anicteric. Palpebral conjunctiva pink and moist with no injection noted. EARS - No deformities of external structures noted on gross examination bilaterally. No pain elicited with palpation of the tragus bilaterally. External auditory canals without discharge or otorrhea. Tympanic membranes pearly aguayo without retraction or bulging. No fluid or purulent material visualized behind the TM. Handle of malleus, umbo, cone of light, pars tensa/flaccid all easily visualized. NOSE - Midline and without cyanosis. No epistaxis or purulent drainage noted. Septum midline without deviation or septal hematoma noted. MOUTH/OROPHARYNX - Without perioral cyanosis. Buccal mucosa pink and moist and without leukoplakia. Tongue midline with equal elevation of palate bilaterally. No tonsillar hypertrophy, erythema, or exudates noted. dentition noted. NECK - Neck with FROM. Supple to palpation. lymphadenopathy noted. No nuchal rigidity. LUNGS - Chest wall symmetric without accessory muscle use, intercostals retractions, or central cyanosis. Normal vesicular breath sounds CTA B/L. No wheezes, rales, or rhonchi appreciated. CARDIAC - RRR with S1/S2. No murmur, rubs, or gallops appreciated. ABDOMEN - Abdominal contour without pulsations or visible masses. BS normoactive all four quadrants. No tenderness, palpable masses, hepatosplenomegaly, or ascites noted. EXTREMITIES - No clubbing or peripheral cyanosis. No pretibial edema present. +3/5 radial, posterior tibial, and dorsalis pedis pulses palpated throughout. +5/5 strength noted in UE/LE bilaterally. NEUROLOGIC - Cranial nerves II through XII grossly intact. Sensory intact to light touch throughout. Patellar reflexes +2/4. PSYCH - A&Ox3 and cooperates fully with examiner. Pt is very pleasant and interacts well with examiner. Course Administered Medications Cyclosporine (Restasis) 1 drops OPB BID SOPHY Stop: 05/29/20 20:59 Last Admin: 04/29/20 21:23 Dose: 1 drops Documented by: [id number] Heparin Sodium (Porcine) (Heparin Sodium (Porcine)) 5,000 units SQ Q12 SOPHY Stop: 05/29/20 20:59 Last Admin: 04/29/20 21:21 Dose: Not Given Documented by: [id number] Ketorolac Tromethamine (Acular Ls 0.4%) 1 drops OPR BID SOPHY Stop: 05/29/20 20:59 Last Admin: 04/29/20 21:24 Dose: 1 drops Documented by: [id number] Levothyroxine Sodium (Synthroid) 75 mcg PO DAILYBB [facility] Stop: 05/30/20 06:29 Last Admin: 04/30/20 06:16 Dose: 75 mcg Documented by: [id number] *Refresh*Non- Formulary Patient's Own Med 1 ea OP BID SPOHY Stop: 05/29/20 20:59 Last Admin: 04/29/20 21:25 Dose: 1 drops Documented by: [id number] Discontinued Medications Sodium Chloride (Nss 1000ml) 1,000 mls @ 999 mls/hr IV .Q1H1M SOPHY Stop: 04/29/20 08:45 Last Infusion: 04/29/20 09:24 Dose: 0 mls/hr Documented by: [id number] Admin: 04/29/20 08:23 Dose: 999 mls/hr Documented by: [id number] Sodium Chloride (Nss 1000ml) 1,000 mls @ 100 mls/hr IV .Q10H SOPHY Stop: 04/29/20 23:44 Last Infusion: 04/30/20 00:53 Dose: 0 mls/hr Documented by: [id number] Infusion: 04/29/20 15:59 Dose: 100 mls/hr Documented by: [id number] Admin: 04/29/20 14:16 Dose: 75 mls/hr Documented by: [id number] Miscellaneous (Order Awaiting Action) 1 ea N/A QS [facility] Stop: 05/29/20 15:59 Last Admin: 04/29/20 16:16 Dose: Not Given Documented by: [id number] Miscellaneous (Order Awaiting Action) 1 ea N/A QS SOPHY Stop: 05/29/20 15:59 Last Admin: 04/29/20 16:16 Dose: Not Given Documented by: [id number] Pneumococcal Polyvalent Vaccine (Pneumovax-23) 25 mcg IM .ONCE ONE Stop: 04/29/20 21:01 Last Admin: 04/29/20 21:22 Dose: Not Given Documented by: [id number] Medical Decision Making Differential Diagnosis Infection, dehydration, metabolic abnormality, hypo/hyperglycemia, electrolyte disturbance, anemia, hypoxia, cardiac sources, intracerebral event, toxicologic, neurologic, as well as other pathologies. Medical Records Attestation: I reviewed the patient's medical records. Home Medications Current Medication List: was personally reviewed by me Laboratory Data Attestation: I reviewed the patient's lab results. Result diagrams: 04/29/20 08:00 04/29/20 08:00 Lab Results 04/29/20 04/29/20 04/29/20 Range/Units 08:00 08:00 08:00 WBC 9.96 (4.8-10.8) K/uL RBC 4.73 (4.2-5.4) M/uL Hgb 14.5 (12.0-16.0) g/dL Hct 43.0 (37-47) % MCV 90.9 (80-100) fL MCH 30.7 (25-34) pg MCHC 33.7 (32-36) g/dL RDW Std Deviation 44.9 (36.4-46.3) fL RDW Coeff of Sudheer 13.5 (11.5-14.5) % Plt Count 147 (130-400) K/uL MPV 9.9 (7.4-10.4) fL Immature Gran % (Auto) 0.3 % Neut % (Auto) 90.1 % Lymph % (Auto) 4.0 % [place] % (Auto) 5.4 % Eos % (Auto) 0.1 % Baso % (Auto) 0.1 % Neut # (Auto) 8.97 H (1.4-6.5) K/uL Lymph # (Auto) 0.40 L (1.2-3.4) K/uL [place] # (Auto) 0.54 (0.11-0.59) K/uL Eos # (Auto) 0.01 (0-0.5) K/uL Baso # (Auto) 0.01 (0-0.2) K/uL Immature Gran # (Auto) 0.03 H (0.00-0.02) K/uL Sodium 139 (136-145) mmol/L Potassium 3.7 (3.5-5.1) mmol/L Chloride 106 (98-107) mmol/L Carbon Dioxide 26 (21-32) mmol/L Anion Gap 7.0 (3-11) BUN 12 (7-18) mg/dl Creatinine 0.86 (0.6-1.2) mg/dl Est Cr Clr Drug Dosing 56.5 ml/min Est GFR ( Amer) 78.2 Est GFR (Non-Af Amer) 67.5 BUN/Creatinine Ratio 14.0 (10-20) Glucose 140 H (70-99) mg/dl Calcium 9.0 (8.5-10.1) mg/dl Total Bilirubin 0.9 (0.2-1) mg/dl AST 37 (15-37) U/L ALT 40 (12-78) U/L Alkaline Phosphatase 94 (45-117) U/L Total Creatine Kinase 374 H (26-192) U/L Troponin I < 0.015 (0-0.045) ng/ml Total Protein 7.4 (6.4-8.2) gm/dl Albumin 4.1 (3.4-5.0) gm/dl Globulin 3.3 (2.5-4.0) gm/dl Albumin/Globulin Ratio 1.2 (0.9-2) TSH 1.860 (0.300-4.500) uIu/ml Specimen Hemolysis Urine Color Yellow Urine Appearance Clear (Clear) Urine pH 7.5 (4.5-7.5) Ur Specific [place] 1.015 (1.000-1.030) Urine Protein Negative (Negative) Urine Glucose (UA) Negative (Negative) Urine Ketones Trace H (Negative) Urine Blood Negative (Negative) Urine Nitrite Negative (Negative) Urine Bilirubin Negative (Negative) Urine Urobilinogen Negative (Negative) Ur Leukocyte Esterase Negative (Negative) Urine WBC (Auto) 0 (0-5) /hpf Urine RBC (Auto) 0-4 (0-4) /hpf U Hyaline Cast (Auto) 1-5 (0-5) /lpf U Epithel Cells (Auto) 10-20 H (0-5) /lpf Urine Bacteria (Auto) Negative (Negative) Urine Opiates Screen (Neg) Ur Methadone, Qual (Neg) Urine Barbiturates (Neg) Ur Phencyclidine (PCP) (Neg) U Amphetamin/Meth Scrn (Neg) MDMA (Ecstasy) Screen (Neg) U Benzodiazepines Scrn (Neg) Ur Cocaine Metabolite (Neg) U Marijuana (THC) Screen (Neg) 04/29/20 Range/Units 08:00 WBC (4.8-10.8) K/uL RBC (4.2-5.4) M/uL Hgb (12.0-16.0) g/dL Hct (37-47) % MCV (80-100) fL MCH (25-34) pg MCHC (32-36) g/dL RDW Std Deviation (36.4-46.3) fL RDW Coeff of Sudheer (11.5-14.5) % Plt Count (130-400) K/uL MPV (7.4-10.4) fL Immature Gran % (Auto) % Neut % (Auto) % Lymph % (Auto) % [place] % (Auto) % Eos % (Auto) % Baso % (Auto) % Neut # (Auto) (1.4-6.5) K/uL Lymph # (Auto) (1.2-3.4) K/uL [place] # (Auto) (0.11-0.59) K/uL Eos # (Auto) (0-0.5) K/uL Baso # (Auto) (0-0.2) K/uL Immature Gran # (Auto) (0.00-0.02) K/uL Sodium (136-145) mmol/L Potassium (3.5-5.1) mmol/L Chloride (98-107) mmol/L Carbon Dioxide (21-32) mmol/L Anion Gap (3-11) BUN (7-18) mg/dl Creatinine (0.6-1.2) mg/dl Est Cr Clr Drug Dosing ml/min Est GFR ( Amer) Est GFR (Non-Af Amer) BUN/Creatinine Ratio (10-20) Glucose (70-99) mg/dl Calcium (8.5-10.1) mg/dl Total Bilirubin (0.2-1) mg/dl AST (15-37) U/L ALT (12-78) U/L Alkaline Phosphatase (45-117) U/L Total Creatine Kinase (26-192) U/L Troponin I (0-0.045) ng/ml Total Protein (6.4-8.2) gm/dl Albumin (3.4-5.0) gm/dl Globulin (2.5-4.0) gm/dl Albumin/Globulin Ratio (0.9-2) TSH (0.300-4.500) uIu/ml Specimen Hemolysis Urine Color Urine Appearance (Clear) Urine pH (4.5-7.5) Ur Specific [place] (1.000-1.030) Urine Protein (Negative) Urine Glucose (UA) (Negative) Urine Ketones (Negative) Urine Blood (Negative) Urine Nitrite (Negative) Urine Bilirubin (Negative) Urine Urobilinogen (Negative) Ur Leukocyte Esterase (Negative) Urine WBC (Auto) (0-5) /hpf Urine RBC (Auto) (0-4) /hpf U Hyaline Cast (Auto) (0-5) /lpf U Epithel Cells (Auto) (0-5) /lpf Urine Bacteria (Auto) (Negative) Urine Opiates Screen Neg (Neg) Ur Methadone, Qual Neg (Neg) Urine Barbiturates Neg (Neg) Ur Phencyclidine (PCP) Neg (Neg) U Amphetamin/Meth Scrn Neg (Neg) MDMA (Ecstasy) Screen Neg (Neg) U Benzodiazepines Scrn Neg (Neg) Ur Cocaine Metabolite Neg (Neg) U Marijuana (THC) Screen Neg (Neg) Imaging Data Radiologist's Impression: [facility], [place] [phone] CT Scan Report Patient: MELVINA WILLIAMSON RAdmit Date: 04/29/20 MR#: [id number] Acct ID:[id number]: Date: 1945[facility] Zip: [place] [address] Age: 74Location: ED Sex: F Room/Bed: Att Phy:Diagnosis: FALL Chastity Phy: Anjeliter, Inés DOService Date: 04/29/20 [facility] Phy:Interpreting Phy: Landon Alejo MD Admit Phy: Ordering Phy: Abhay Stratton MD cc: ~ CT head/brain wo con CT DOSE: 614.27 mGy.cm HISTORY: Mental status change Pt c/o AMS TECHNIQUE: Multiaxial CT images of the head were performed without the use of intravenous contrast. A dose lowering technique was utilized adhering to the principles of ALARA. Comparison: None. Findings: The paranasal sinuses and mastoid air cells are clear. The calvarium and skull base are intact. The ventricles and sulci are within normal limits. There is no mass, hematoma, midline shift, or acute infarct. Impression: No acute intracranial abnormality. ACT 112: Negative or not required by law. The above report was generated using voice recognition software. It may contain grammatical, syntax or spelling errors. Electronically signed by: Landon Alejo M.D. 04/29/2020 8:20 AM Dictated: 04/29/20818 Transcribed: 04/29/20818 [place], [place] [phone] XRay Report Patient: MELVINA WILLIAMSON Admit Date: 04/29/20 MR#: [id number] Address1: [address] [place] [address] Acct ID:[id number] Address2: Date: 1945 [facility] Zip: [place] [address] Age: 74 Location: ED Sex: F Room/Bed: Att Phy: Diagnosis: FALL Chastity Phy: Keiter, Conte DO Service Date: 04/29/20 [facility] Phy: Interpreting Phy: Orlando Boyer MD Admit Phy: Ordering Phy: Abhay Stratton MD cc: ~ XR pelvis 1-2V routine CLINICAL HISTORY: Pain status post trauma COMPARISON: None. DISCUSSION: No acute fractures are visualized. There are no dislocations. There is no evidence for SI joint diastases. There is no symphysis diastases. There are insertional right peritrochanteric calcifications. IMPRESSION: No fractures identified. ACT 112: Negative or not required by law. Electronically signed by: Orlando oByer M.D. 04/29/2020 8:40 AM Dictated: 04/29/20838 Transcribed: 04/29/20838 [place], [place] [phone] XRay Report Patient: MELVINA WILLIAMSON Admit Date: 04/29/20 MR#: [id number] Address1: [address] [place] [address] Acct ID:[id number] Address2: Date: 1945 [facility] Zip: [place] [address] Age: 74 Location: ED Sex: F Room/Bed: Att Phy: Diagnosis: FALL Chastity Phy: Carson Conte DO Service Date: 04/29/20 Fam Phy: Interpreting Phy: Sourav Posadas MD Admit Phy: Ordering Phy: Abhay Stratton MD cc: ~ SINGLE VIEW CHEST CLINICAL HISTORY: Generalized weakness. FINDINGS: An AP, portable, upright chest radiograph is compared to study dated 09/18/2017 and correlated with chest CT dated 09/19/2017. The examination is degraded by portable technique, apical lordotic positioning, and patient rotation. The heart is enlarged noting atherosclerotic calcification of the thoracic aorta. The pulmonary vasculature is noncongested. Chronic interstitial thickening is similar to previous. Atelectasis is noted in the left lung base. No airspace consolidation is seen typical for pneumonia and there is no large pleural effusion. No pneumothorax is seen. The skeletal structures are osteopenic. The bony thorax is grossly intact. IMPRESSION: Cardiomegaly with no acute cardiopulmonary abnormality. ACT 112: Negative or not required by law. Electronically signed by: Sourav Posadas M.D. 04/29/2020 8:41 AM Dictated: 04/29/20837 Transcribed: 04/29/20837 ECG Data Attestation: I personally reviewed and interpreted this ECG as follows: Indication: + altered mental status Rate (beats per minute): 71 Rhythm: + normal sinus ECG Intervals/blocks: + Normal QT-c (473) ECG [place]: + Left axis deviation ECG ST segments: no ST depression and no ST elevation ECG Findings: + PVCs Comparison ECG Date: from (09/18/2017) Change: the following changes noted (PVC noted) MDM Narrative Patient was seen and evaluated as above in room C9. Review was performed of nursing notes and vital signs. I did review pertinent previous visits and patient history. After obtaining a thorough history and physical examination the above work up was performed. This is a 74-year-old female who presents emergency department minimally cooperative with physical examination. Patient sister is visiting from out of town is staying with the patient and sister found the patient on the floor this morning. Patient refused requests to ambulate in the department therefore I did discuss the case with the hospitalist service who did agree to admit the patient An order was placed for continuous cardiac monitoring. The monitor shows a rate of 66 with Normal Sinus rhythm. The patient was evaluated during the global COVID-19 pandemic, and that diagnosis was suspected/considered upon their initial presentation. Their evaluation, treatment and testing was consistent with current guidelines for patients who present with complaints or symptoms that may be related to COVID- 19. Impression & Plan Weakness Discharge Plan Visit Data *Final* Discharge Date/Time: 04/29/20 12:38 Chief Complaint: Fall ED Provider: Abhay Stratton Discharge Problem: Weakness Patient Disposition: Admitted As Inpatient Discharge Instructions Interventions: ED Discharge Assessment Last Done: 04/29/20 12:38
[2020-04-29 08:32] LABS: Alanine Aminotransferase 40 U/L (12-78); Albumin Level 4.1 gm/dl (3.4-5.0); Aspartate Aminotransferase 37 U/L (15-37); Blood Urea Nitrogen 12 mg/dl (7-18); Carbon Dioxide 26 mmol/L (21-32); Chloride 106 mmol/L (98-107); Creatinine Clr Calc Pharmacy 56.5 ml/min; Est GFR (African American) 78.2; Est GFR (Non-African American) 67.5; Glucose 140 mg/dl (70-99); Potassium 3.7 mmol/L (3.5-5.1); Sodium 139 mmol/L (136-145)
[2020-04-29 08:37] LABS: Protein Urine Negative (Negative); Sulfosalicylic Acid Urine Negative (Negative)
--- NOTE | 2020-04-29 08:41 | XRay Report ---
XR pelvis 1-2V routine CLINICAL HISTORY: Pain status post trauma COMPARISON: None. DISCUSSION: No acute fractures are visualized. There are no dislocations. There is no evidence for SI joint diastases. There is no symphysis diastases. There are insertional right peritrochanteric calci fications. IMPRESSION: No fractures identified. ACT 112: Negative or not required by law. Electronically signed by: Orlando Boyer M.D. 04/29/2020 8:40 AM
--- NOTE | 2020-04-29 08:42 | XRay Report ---
SINGLE VIEW CHEST CLINICAL HISTORY: Generalized weakness. FINDINGS: An AP, portable, upright chest radiograph is compared to study dated 09/18/2017 and correla akanksha with chest CT dated 09/19/2017. The examination is degraded by portable technique, apical lordoti c positioning, and patient rotation. The heart is enlarged noting atherosclerotic calcification of th e thoracic aorta. The pulmonary vasculature is noncongested. Chronic interstitial thickening is simil ar to previous. Atelectasis is noted in the left lung base. No airspace consolidation is seen typical for pneumonia and there is no large pleural effusion. No pneumothorax is seen. The skeletal structur es are osteopenic. The bony thorax is grossly intact. IMPRESSION: Cardiomegaly with no acute cardiopulmonary abnormality. ACT 112: Negative or not required by law. Electronically signed by: Sourav Posadas M.D. 04/29/2020 8:41 AM
[2020-04-29 08:55] LABS: Albumin Globulin Ratio 1.2 (0.9-2); Alkaline Phosphatase 94 U/L (45-117); Bilirubin,Total 0.9 mg/dl (0.2-1); Creatine Kinase 374 U/L (26-192); Globulin 3.3 gm/dl (2.5-4.0); Total Protein 7.4 gm/dl (6.4-8.2); Troponin I < 0.015 ng/ml (0-0.045)
[2020-04-29 11:40] LABS: Amphetamines+Metham, Urine Neg (Neg); Barbiturates, Urine Neg (Neg); Benzodiazepine, Urine Neg (Neg); Cocaine, Urine Neg (Neg); MDMA (Ecstacy), Urine Neg (Neg); Methadone, Urine Neg (Neg); Opiate, Urine Neg (Neg); Phencyclidine, Urine Neg (Neg)
--- NOTE | 2020-04-29 11:46 | Communication Note ---
Date of Service: April 29, 2020 Attending addendum: Patient seen and examined, care coordinated with Amita Marmolejo PA-C This is a 74-year-old female with past medical history of hypertension, hypothyroidism, hyperlipidemia, found at home by her sister on the floor of her bedroom, unresponsive, noted to be incontinence of urine Vitals as per EMR Images and lab reviewed, Physical exam: Brief General: No sign of distress, patient appears to be anxious HEENT: Unremarkable Lungs: Clear to auscultate no wheeze or rales Abdomen: Soft nontender Extremities: Normal strength bilaterally, no rash or deformity Neuro: No focal deficit alert and oriented x3 Assessment and plan: Syncope/fall/brief episode of unresponsiveness Need to rule out seizure, versus arrhythmia Admit to medical telemetry, patient already has a loop recorder by Crunched cardiology Dr. Arango Will discuss with her for possible interrogation versus record regarding any arrhythmia Ordered EEG, neurology evaluation requested, appreciate input Neurology suggest patient to start on Keppra, patient refused to start on any new medications without discussing with retina specialist Dr. Bunn and cardiology Dr. Raymond Salinas Patient should not drive, DMV form needs to fill out Mild elevation of CPK: Possible secondary to fall Ordered IV fluids Hold statin Repeat CPK in a.m. lab Hypothyroidism: Check TSH On levothyroxine 75 mcg p.o. daily, Please refer to further documentation by Amita Marmolejo PA-C for discussion of other clinical issues. Sapna Mueller MD
--- NOTE | 2020-04-29 12:43 | History & Physical Report ---
Date of Service April 29, 2020 Assessment & Plan (1) Syncope: This is a 74-year-old female who has significant past medical history of hypothyroidism, RASHARD intolerant to CPAP, rheumatic mitral valve disease, osteoporosis, history of recurrent syncope with loop recorder in place, central serous chorioretinopathy who presents to ED after being found down on floor by sister this morning. In ED patient remained hemodynamically stable, mildly hypertensive. Her CBC, CMP were generally unremarkable. Mild elevated CK 374, , mild hyperglycemia at 140. She 1 L of IVF in ED. UA negative for infection or drug tox. She underwent head CT, chest x-ray and pelvis x-ray which were generally unre markable. Pt history is questionable at this point. She was last known well by family at approximately 9 PM. No recent illnesses. Patient last recalls going to bed last evening. I am unable to gather from history if patient's fell out of bed or had a true syncopal events as this was unwitnessed. There is report that patient was incontinent of urine when found on floor; however patient and sister both deny this. She does have a known history of recurrent syncope and has had thorough work-up in the past. Currently has a loop recorder in place with no arrhythmia noted except less than [address] of head negative. Does not appear to have infectious component. ? Incontinence unknown if this occurred, if so seizure disorder possibility. Seizure disorder possibility. She last saw neurology 11/19/2018 in which AEDs were discussed, but due to no further recurrence in the past year and a half this was not initiated. Admit to med telemetry Consult neurology Obtain EEG Currently patient is neurologically intact, answers questions appropriately but appears drowsy Neurochecks PT OT Pt able to tolerate liquids at bedside, no signs of dysphagia mild elevation of CPK : possible due to fall ordered for IVF repeat CPK in am normal renal function /LFT WNL (2) HLD (hyperlipidemia): hold statin due to mild elevation of CPK ordered IV fluid repeat CK in am (3) Obstructive sleep apnea: pt did not tolerate CPAP is not on O2 at hs (4) Central serous chorioretinopathy of right eye: follows Dr. Bunn Continue eye gtts (5) Hypothyroidism: continue levothyroxine FULL CODE (6) DVT prophylaxis: SQ Heparin Disposition: [facility] tele Follow up: PCP Dr. Byrd upon discharge Pt was seen and examined in collaboration with Dr. Mueller, please see addendum History of Present Illness Chief Complaint: Found down on floor by sister prior to arrival. Primary Care Provider: Inés Byrd, DO This is a 74-year-old female who has significant past medical history of hypothyroidism, RASHARD intolerant to CPAP, rheumatic mitral valve disease, osteoporosis, history of recurrent syncope with loop recorder in place, central serous chorioretinopathy who presents to ED after being found down on floor by sister this morning. Sister and her are currently visiting from out of town. They got in last night and patient's last known time well was 9 PM last evening. According to sister she was her usual state of health, prolonged walk last evening. She went to bed without any complaints. Typically she takes the dog out around 530 or 6 AM. When sister awoke she went to check on patient and found her table in bed sheets laying on her side out of bed. When trying to wake her sister she appeared to have altered mental status and was confused. There is question about whether or not patient lost consciousness. She does not recall any events in last thing she recalls is going to bed last evening around 9 PM. She is unaware of any bowel or bladder incontinence; however per ED provider there was urine incontinence. Upon my examination patient is alert but drowsy and answers all questions appropriately. She denies any recent illness, fever, chills, sweats, lightheadedness, dizziness, headache, change in hearing, change in vision diplopia, chest pain, shortness of breath, palpitation, cough, nausea, vomiting, abdominal pain, change in bowel or urinary habits. She does admit to having pain around recorder site. She denies any known contacts to COVID-19 denies any loss of taste or smell. Prior to today she had normal appetite. According to sister she has had work history of recurrent syncope in the past. She follows Dr. Arango with recorder in place. She did have less than 1 second run of PAF but otherwise no arrhythmias have been noted. She also follows with [facility] neurology and there was discussion about possibly starting antiepileptic medication. She has not had recurrence of syncope in past 2 years. Currently sister feels in the past hour patient has become more lucid, but does admit to patient referring to her dog that previously . In ED patient remained hemodynamically stable, mildly hypertensive. Her CBC, CMP were generally unremarkable. Mild elevated CK 374, LFT otherwise WNL, mild hyperglycemia at 140. She 1 L of IVF in ED. UA negative for infection or drug tox. She underwent head CT, chest x-ray and pelvis x-ray which were generally unremarkable. Allergies Allergy/AdvReac Type Severity Reaction Status Date / Time ampicillin Allergy Unknown . Verified 04/29/20 08:10 latex Allergy Unknown RASH Verified 04/29/20 08:10 milk Allergy Unknown GI ISSUES Verified 04/29/20 08:10 Penicillins Allergy Unknown . Verified 04/29/20 08:10 adhesive tape Allergy Verified 04/29/20 08:10 Home Medications Home Medications Medication Instructions Recorded Confirmed Type alendronate 70 mg PO TU 04/29/20 04/29/20 History atorvastatin 20 mg PO DAILY 04/29/20 04/29/20 History [id number] 1 drp OPHTHALMIC (EYE) BID 04/29/20 04/29/20 History [Refresh Optive Advanced] cyclosporine [Restasis] 1 drp OPB BID 04/29/20 04/29/20 History ketorolac 1 drp OPR BID 04/29/20 04/29/20 History levothyroxine 75 mcg PO DAILY 04/29/20 04/29/20 History vitamins A,C,M-fxqi-bhsvey 1 tab PO BID 04/29/20 04/29/20 History [PreserVision AREDS] Past Med/Surg History Medical History 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 EF 60-65%. Stage 1 diastolic dysfunction." On 10/08/14 11:30 Alondra Ray wrote "Echo 2008-moderate mitral regurgitation. EF 60-65%." Hx of basal cell carcinoma (Chronic) "L lower leg 2008" Hypothyroidism (Chronic) Macular degeneration (Chronic) Surgical History History of eye surgery (Chronic) History of eye surgery History of trabeculectomy Hx of tonsillectomy (Chronic) S/P tonsillectomy and adenoidectomy Family History Father Sudden cardiac Sister Thyroid disease Lupus erythematosus Unknown AMD (age related macular degeneration) Social History (Updated 04/29/20 @ 13:04 by Amita Gale PA-C) Smoking Status: Never smoker Hx Alcohol Use: Yes Alcohol type: wine Alcohol Intake Frequency: Monthly or Less Hx Substance Use: No Preferred Language: Citizen Of [place] Communication Ability: Effective Movement Assembler Required: Yes Beliefs That Will Affect Care: None Current Living Situation: Alone Other Information That Helps Us Care for You: No Feels Safe at Home: Yes Safety Concerns: Feels Safe At This Time Review of Systems Review of Systems: All systems reviewed & are unremarkable except as noted in HPI & below Physical Exam Physical Exam: Constitutional: WD/WN, thin, female, drowsy, vitals as above, NAD, sitting up in bed, answers questions appropriately and follows commands Head: Normocephalic, Atraumatic Eyes: PERRL, conjunctivae mildly erythematous with tearing of right eye, anicteric sclerae ENMT: external ear and nose normal, oropharynx normal Neck: trachea midline, no thyromegaly normal visual inspection Respiratory: normal respiratory effort, lungs clear to auscultation, no wheeze, rales, rhonchi. Normal insp/exp effort, no accessory muscle use Cardiovascular: RRR, no murmur, no edema Vessels: no JVD or carotid bruit Chest: normal inspection of chest Abdomen: normal bowel sounds, soft, nontender, no hepatosplenomegaly Musculoskeletal: no cyanosis or clubbing, extremities motor strength 5/5 Skin: no rashes, warm and dry normal turgor Neurologic: PERRL, EOMI, accommodation nl, no face palsy, no dysarthria CN's II-XI intact bilaterally and moves all extremities Psychiatric: A+Ox3, euthymic affect Lymphatic: no cervical or axillary lymphadenopathy : deferred Results & Data Results & Data ([facility] [place]) Vital Signs (Past 12 Hours) Vital Signs Temp Pulse Pulse Resp BP BP Pulse Ox 04/29/20 12:31 74 13 04/29/20 12:30 74 16 135/64 97 04/29/20 12:01 74 22 97 04/29/20 12:00 74 20 143/72 H 98 04/29/20 11:31 66 12 97 04/29/20 11:30 67 12 137/71 97 04/29/20 11:19 72 15 125/75 97 04/29/20 11:01 70 12 98 04/29/20 11:00 69 19 125/75 94 04/29/20 10:31 67 14 97 04/29/20 10:30 66 13 144/71 H 97 04/29/20 10:01 68 13 97 04/29/20 10:00 68 13 151/76 H 04/29/20 09:31 66 12 99 04/29/20 09:30 64 13 150/69 H 99 04/29/20 09:01 76 18 98 04/29/20 09:00 76 13 149/75 H 99 04/29/20 08:31 64 13 97 04/29/20 08:30 68 18 134/68 98 04/29/20 08:21 71 13 136/68 96 04/29/20 08:00 36.4 C L 68 12 121/70 99 04/29/20 07:58 66 66 20 121/70 99 04/29/20 07:47 82 13 04/29/20 07:42 69 19 121/70 Laboratory Results Short CBC 04/29/20 Range/Units 08:00 WBC 9.96 (4.8-10.8) K/uL Hgb 14.5 (12.0-16.0) g/dL Hct 43.0 (37-47) % Plt Count 147 (130-400) K/uL BMP 04/29/20 08:00 Sodium 139 Potassium 3.7 Chloride 106 Carbon Dioxide 26 BUN 12 Creatinine 0.86 Glucose 140 H Calcium 9.0 Cardiac Enzymes 04/29/20 Range/Units 08:00 Total Creatine Kinase 374 H (26-192) U/L Troponin I < 0.015 (0-0.045) ng/ml Liver Function 04/29/20 Range/Units 08:00 Total Bilirubin 0.9 (0.2-1) mg/dl AST 37 (15-37) U/L ALT 40 (12-78) U/L Alkaline Phosphatase 94 (45-117) U/L Albumin 4.1 (3.4-5.0) gm/dl Urine 04/29/20 Range/Units 08:00 Urine Color Yellow Urine Appearance Clear (Clear) Urine pH 7.5 (4.5-7.5) Ur Specific [place] 1.015 (1.000-1.030) Urine Protein Negative (Negative) Urine Glucose (UA) Negative (Negative) Diagnostic Findings Head CT: Impression: No acute intracranial abnormality. CXR: IMPRESSION: Cardiomegaly with no acute cardiopulmonary abnormality. Pelvis Xray: IMPRESSION: No fractures identified. Medications Administered Discontinued Medications Sodium Chloride (Nss 1000ml) 1,000 mls @ 999 mls/hr IV .Q1H1M SOPHY Stop: 04/29/20 08:45 Last Infusion: 04/29/20 09:24 Dose: 0 mls/hr Documented by: [id number] Admin: 04/29/20 08:23 Dose: 999 mls/hr Documented by: [id number] ECG Rate (beats per minute): 71 Rhythm: normal sinus Findings: + PVC Code Status & VTE Plan Code Status DNR/DNI VTE Prophylaxis Plan VTE Prophylaxis will be ordered: Yes Supervising Physician Co-Signing Physician Notes Date of Service: April 29, 2020 Attending addendum: Patient seen and examined, care coordinated with Amita Marmolejo PA-C This is a 74-year-old female with past medical history of hypertension, hypothyroidism, hyperlipidemia, found at home by her sister on the floor of her bedroom, unresponsive, noted to be incontinence of urine Vitals as per EMR Images and lab reviewed, Physical exam: Brief General: No sign of distress, patient appears to be anxious HEENT: Unremarkable Lungs: Clear to auscultate no wheeze or rales Abdomen: Soft nontender Extremities: Normal strength bilaterally, no rash or deformity Neuro: No focal deficit alert and oriented x3 Assessment and plan: Syncope/fall/brief episode of unresponsiveness Need to rule out seizure, versus arrhythmia Admit to medical telemetry, patient already has a loop recorder by [employer] cardiology Dr. Arango Will discuss with her for possible interrogation versus record regarding any arrhythmia Ordered EEG, neurology evaluation requested, appreciate input Neurology suggest patient to start on Keppra, patient refused to start on any new medications without discussing with retina specialist Dr. Bunn and cardiology Patient should not drive, DMV form needs to fill out Mild elevation of CPK: Possible secondary to fall Ordered IV fluids Hold statin Repeat CPK in a.m. lab Hypothyroidism: Check TSH On levothyroxine 75 mcg p.o. daily, Please refer to further documentation by Amita Marmolejo PA-C for discussion of other clinical issues. Sapna Mueller MD
--- NOTE | 2020-04-29 13:28 | Electrocardiogram Report ---
Test Reason : Blood Pressure : / mmHG Vent. Rate : 071 BPM Atrial Rate : 071 BPM P-R Int : 158 ms QRS Dur : 096 ms QT Int : 436 ms P-R-T Axes : 065 -32 -02 degrees QTc Int : 473 ms Sinus rhythm with occasional Premature ventricular complexes Left axis deviation Abnormal ECG When compared with ECG of 18-SEP-2017 19:55, Premature ventricular complexes are now Present QRS axis Shifted left Confirmed by Gómez Solis ([id number]) on 04/29/2020 1:28:06 PM Referred By: ER Confirmed By:Werner Solis
[2020-04-29] MEDS ORDERED: ALUMINUM/MAGNESIUM SUSP 30 ML UDC PO PRN (13:45)
[2020-04-29] MEDS ORDERED: POLYETHYLENE (MIRALAX) 17 GM PACK PO PRN (13:45)
[2020-04-29] MEDS ORDERED: ACETAMINOPHEN 325 MG TAB PO PRN (13:45)
[2020-04-29] MEDS ORDERED: MAGNESIUM HYDROXIDE SUSP 30 ML UDC PO PRN (13:45)
[2020-04-29] MEDS ORDERED: *RESTASIS*ORDER AWAITING ACTION SCH (16:00)
--- NOTE | 2020-04-29 18:24 | Consultation Report ---
DATE OF CONSULTATION: 04/29/2020 REASON FOR CONSULTATION: Possible seizure, loss of consciousness. HISTORY OF PRESENT ILLNESS: The patient is a 74-year-old right-handed female with a history of multiple episodes of syncope since 2017. She also has a significant past medical history of hypothyroidism, obstructive sleep apnea, intolerant to CPAP, rheumatic mitral valvular disease, osteoporosis, recurrent syncope with a loop recorder in place and central serous chorioretinopathy, presented to the ER after being found down on the floor by her sister. Her sister stayed last evening and this morning when her sister awoke, the patient's dog came to get her. They went into the patient's room and she was found on the floor, she was mildly confused and had been incontinent of urine. No focal neurologic deficits were noted such as a facial droop. The patient is amnestic until she was in the Emergency Room and remains still mildly confused, but by report, improved. Since 2014 or 2016, she has had recurrent episodes. All but one have occurred while sleeping. I do not believe they have ever been witnessed. She is found on the floor having apparently fallen out of bed They have resulted in a fractured shoulder as well as a laceration on the forehead. The patient has had an implantable loop monitor for several years. I do not know if an eipsode has been captured previously. The patient has no prior history of seizure in youth or stroke. No family history of seizure. She has otherwise recently been well. None of her medicines are new or changed in dose. In the past when she was seen by our practice in 2018, she had an abnormal 3-day EEG. This EEG showed occasional irregular slowing and discrete sharp waves noted in the left mid to anterior temporal region and rare independent right frontotemporal slowing. The patient was not started on anticonvulsants at that time as the EEG was not definitively abnormal and the patient was still undergoing cardiac monitoring. On admission, white count, H and H and platelet count were normal. The neutrophils were 9. D-dimer was 790. Sodium and potassium were normal. Glucose 140. Transaminases normal. CK 374. TSH normal. Urinalysis notable for trace ketones and 10-20 epithelial cells. Tox screen was negative. CT of the head noncontrast showed no acute abnormality. I have reviewed those images and they appear to show some mild chronic vascular changes consistent with aging. Electrocardiogram, sinus rhythm with occasional PVCs, left axis deviation. PAST MEDICAL HISTORY: As above. Additionally, hyperlipidemia, obstructive sleep apnea, central serous retinopathy. The patient indicates she was told by Dr. Bunn never to take a medication without consulting with him. Hypothyroidism, basal cell carcinoma and macular degeneration. PAST SURGICAL HISTORY: Eye surgery, trabeculectomy, tonsillectomy and adenoidectomy. FAMILY HISTORY: Father of sudden in his 30s. Sister has thyroid disease and lupus. SOCIAL HISTORY: Nonsmoker. The patient drinks alcohol occasionally. She is retired from [employer]. ALLERGIES: AMPICILLIN, LATEX, MILK, PENICILLIN, AND ADHESIVE TAPE. HOME MEDICATIONS: Alendronate, atorvastatin, Refresh Optive advanced, Restasis, ketorolac eye drops, levothyroxine and PreserVision. PHYSICAL EXAMINATION: VITAL SIGNS: 133/69, 18, 37.1, 94%. The patient is very mildly sleepy. She is oriented x3. She was mildly confused in her history giving, in that she indicated her first spell was in 1996 and it was in fact in 2017. She is mildly irritable. Her head is normocephalic, atraumatic. No tenderness to her hips. There are no carotid bruits, no heart murmurs. Heart has regular rate and rhythm. No ecchymosis is noted on her legs. There is no evidence of a tongue laceration. Her pupils are equal, I had difficulty visualizing the optic nerves. There are normal bass, motility, facial sensation. Some mild reduction in right director radio news strength. There may be mildly decreased right rapid alternating movements. There is no drift. Reflexes are symmetric. Toes are downgoing. Fedtom-fc-vsaq and egmt-ot-riot are normal. Sensation is intact to light touch and temperature. IMPRESSION AND PLAN: I suspect this patient has had a seizure. There is some supportive evidence on prior EEG that this may be the case. The hospitalist is going to reach out to cardiology to see if they can review the loop monitor to rule out any malignant arrhythmia, doubt. I would like to empirically start her on Keppra. She categorically refuses to take anything until I contact her activated sludge operator. I have sent a text message to him. If she refuses Keppra in the short run, I think it is of only mild concern given the relative infrequency of these episodes. However, I feel strongly that it needs to be begun. I indicated to the patient that Keppra does not affect macular degeneration. She was not satisfied with that information. She would like to leave against medical advice; however, I feel she is mildly confused still as does her sister. I would recommend an MRI of the brain with and without contrast, although radiology will need to confirm whether or not her loop monitor is MRI compatible. I believe the patient has some mild weakness of the right hand, which could be a postictal phenomenon. We will follow with you. SHIREEN
--- NOTE | 2020-04-29 20:39 | Communication Note ---
Date of Service: April 29, 2020 Attending addendum: Patient had recurrent episode of passing out/syncope Patient had implantable loop recorder placed on 03/02/2020 at [facility] cardiolo gy/pacemaker clinic by Dr. Arango Scheduled for pacemaker clinic visit in 3 months(06/02/2020) Need to discuss with Dr Arango any record of cardiac arrhythmia noted early this morning/during episode of syncope . Neurology recommends MRI of brain with or without contrast for complete neurological work-up Need to discuss with EP cardiology regarding MRI compatibility Dr Ilir Georges will follow up this pt in am will sign out to Dr Destini Mueller MD
[2020-04-29] MEDS ORDERED: CARBOXYMETHYLCELLULOSE GLYCERN OPB SCH (21:00)
[2020-04-29] MEDS ORDERED: PNEUMOCOCCAL Polysaccharide Vaccine 25mcg/0.5mL vial/Syr IM ONE (21:00)
[2020-04-29] MEDS ORDERED: ARTIFICIAL TEARS OP SCH (21:00)
[2020-04-29] MEDS: HEPARIN SOD 5,000 UNIT/0.5 ML VIAL SQ SCH (21:21)
[2020-04-29] MEDS: cycloSPORINE (RESTASIS) OPB SCH (21:23)
[2020-04-29] MEDS: KETOROLAC LS 0.4% OP SOLN 5 ML BTL OPR SCH (21:24)
[2020-04-29] MEDS: REFRESH OP SCH (21:25)
[2020-04-30] MEDS: LEVOTHYROXINE SODIUM 75 MCG TABLET PO SCH (06:16)
[2020-04-30] MEDS: CEROVITE ADV FORMULA TAB PO SCH (09:15)
[2020-04-30] MEDS: KETOROLAC LS 0.4% OP SOLN 5 ML BTL OPR SCH ×2 (09:15→20:11)
[2020-04-30] MEDS: cycloSPORINE (RESTASIS) OPB SCH ×2 (09:17→20:11)
[2020-04-30] MEDS: REFRESH OP SCH ×2 (09:17→20:17)
[2020-04-30] MEDS: HEPARIN SOD 5,000 UNIT/0.5 ML VIAL SQ SCH ×2 (09:20→20:16)
--- NOTE | 2020-04-30 11:48 | Progress Notes ---
DATE: 04/30/2020 SUBJECTIVE: I am seeing the patient in followup of what is thought to be a seizure. EEG has not yet been performed. The patient has a history of a prior abnormal ambulatory EEG with occasional irregular slowing and discrete sharp waves noted in the left mid to anterior temporal region and rare independent right frontotemporal slowing. The patient was found down on the ground, incontinent and confused. CPK was elevated. She has gradually improved in terms of mild confusion, although she still spoke to her sister about a dog that she had that has been more than 10 years. OBJECTIVE: The patient is awake and alert, oriented. Mildly irritable. There is no facial asymmetry. There still appears to be some minor right hot box checker weakness with decreased right rapid alternating movements which are marginal and improved. Lower extremity strength is full. IMPRESSION AND PLAN: This patient has had a history of 3 years of nocturnal events, which have been unwitnessed. Hospitalist team needs to reach out to Cardiology to see if the implantable loop monitor revealed an arrhythmia at the time of her episode 2 days ago. I think this is unlikely given that the patient was incontinent, confused for a protracted period and mildly weak thereafter. The recurrent history, the nocturnal predominance and the mildly abnormal EEG, ambulatory from the past, suggest these are seizures. I have explained to the patient I think she should begun on Keppra. She is not willing to start Keppra until we speak to her esthetician, Dr. Bunn and business system manager. I have sent a message to Dr. Bunn, which he has not responded to. I assume he is not working for the weekend. Hospitalist team will reach out to Dr. Arango. The patient should not drive until she is seen back in my office. I have suggested Keppra 250 mg twice a day for a week and then 500 mg twice a day. The patient should have someone staying with her, especially if she elects not to start medication until we are able to contact primary Ophthalmology and Cardiology until Saturday. I had discussed side effects of medications previously. If the patient is discharged today, which is her desire, I would prefer if an MRI of the brain with and without contrast was performed, if it can be performed with her implantable loop monitor. If not, a CT of the head with and without contrast. The patient should see me in followup post discharge.
--- NOTE | 2020-04-30 14:03 | Communication Note ---
Date of Service: April 30, 2020 Admitting hospitalist addendum : Discussed with [facility] cardiology Dr Arango : pt has medtronic implanted cardiac loop recorder -which is MRI compatible remote transmission from [employer] loop recorder requested Dr Arango will review the records -evidence of any significant arrythmia during the time of syncope will be updated by Cardiology Medical Attending Dr Georges updated . Sapna Mueller MD
[2020-04-30] MEDS ORDERED: GADOBUTROL 7.5ML VIAL IV ONE (14:36)
--- NOTE | 2020-04-30 14:58 | Magnetic Resonance Report ---
MR brain seizure wo/w con CLINICAL HISTORY: presumed sz, r hand weakness, pt has impl loop mon COMPARISON STUDY: CT same date. TECHNIQUE: Utilizing a 1.5 Elizabeth magnet and dedicated coil, multiplanar, multiecho imaging of the br ain was performed pre and postcontrast administration. IV administration of 8 mL of Gadavist contras t was uneventful. Thin cut coronal T2 imaging was performed according to seizure protocol. FINDINGS: Diffusion images show no evidence for an acute ischemic event. Signal characteristics of th e cerebellar as well as cerebral hemispheres are unremarkable. Impressions of minimal chronic small v essel change and mild age-related atrophy. Postcontrast images are negative for enhancing lesion. IMPRESSION: 1. Negative MRI of the brain for age. 2. No evidence for an acute ischemic event. ACT 112: Negative or not required by law. The above report was generated using voice recognition software. It may contain grammatical, syntax or spelling errors. Electronically signed by: Landon Alejo M.D. 04/30/2020 2:57 PM
--- NOTE | 2020-04-30 14:58 | Hospitalist Progress Note ---
Date of Service April 30, 2020 Assessment & Plan (1) Syncope: Likely secondary to seizures This is a 74-year-old female who has significant past medical history of hypothyroidism, RASHARD intolerant to CPAP, rheumatic mitral valve disease, osteoporosis, history of recurrent syncope with loop recorder in place, central serous chorioretinopathy who presents to ED after being found down on floor by sister this morning. She has a low elevated bed and was found to be on the floor by her sister on the morning of admission with incontinence and generalized weakness and confusion Her episode seems to be secondary to seizure with history of possible seizure disorder with past episode and documentation in the EEG findings in the past She has not been taking any medications to prevent seizures She denies to have any symptoms as of this morning Appreciate neurology input and recommendation She was not agreeable to go for MRI of the brain but later on she was agreed to do it She is not pain accepting Keppra as a prevention of seizure until she is cleared from her ophthalmic aide She has high risk of recurrent seizure and without medication is going to be worse She was explained this with repeated visits with her since this morning and she is still deciding about taking the medications on not She is not allowed to drive until being cleared by the neurologist as an outpatient on discharge She has has not implanted cardiac loop recorder Dr. Arango has been contacted to repeat loop recorder to rule out any arrhythmias as the cause of her episode She is cleared for MRI with this type of device in her chest (2) HLD (hyperlipidemia): hold statin due to mild elevation of CPK ordered IV fluid repeat CK in am (3) Obstructive sleep apnea: pt did not tolerate CPAP is not on O2 at hs (4) Central serous chorioretinopathy of right eye: Central serous chorioretinopathy of right eye She has been under care of Dr. Bunn for this and was advised not to take any medications until he is been informed about that The patient does not want to start any Keppra until it is been cleared by Dr. Bunn The neurologist has been trying to contact Dr. Bunn deeply at that issue (5) Hypothyroidism: continue levothyroxine FULL CODE (6) DVT prophylaxis: SQ Heparin Disposition: admit to [facility] tele Follow up: PCP Dr. Byrd upon discharge Repeated visits to this patient since this morning She has not been convinced yet to start Keppra to prevent seizures Admission and Anticipated Discharge Date Admission Date: April 29, 2020 Subjective 04/30/2020 The patient was seen and examined in medical telemetry unit She was admitted with a possible seizure that happened on Saturday night at home She complains to have minimal decrease in engineering librarian with the right hand Denies any other significant symptoms Review of Systems Review of Systems: All systems reviewed and are unremarkable except as noted below Neurologic: + problem reported (Minimal weakness with engineering librarian in the right hand); no gait abnormality, no unsteadiness, no numbness, no paresthesia, no tremor(s) and no confusion Physical Exam Physical Exam: Sitting at the edge of the bed without any acute distress Constitutional: well developed and well nourished; no acute distress and not ill appearing Eyes: PERRL, conjunctivae normal, anicteric sclerae ENMT: external ear and nose normal, oropharynx normal Neck: trachea midline, no thyromegaly Respiratory: normal respiratory effort; no respiratory distress Auscultation: lungs clear to auscultation bilaterally Cardiovascular: Rate/Rhythm: regular rate and regular rhythm Heart Sounds: no murmur Gastrointestinal (Abdomen): Inspection/Auscultation: abdomen normal to inspection; abdomen not distended Percussion/Palpation: abdomen soft; abdomen nontender Musculoskeletal: No acute arthritis involving any joints Neurologic: normal touch/pain/proprioception, CN's II-XI intact bilaterally an d moves all extremities; no focal motor deficits Speech / Cognition: normal speech Motor/Sensory: no tremor Alert, awake and oriented x3 Results & Data Results & Data ([facility]) Vital Signs (Past 12 Hours) Vital Signs Temp Pulse Pulse Resp BP Pulse Ox 04/30/20 13:03 98 04/30/20 07:20 71 04/30/20 07:17 36.7 C 70 16 134/72 95 04/30/20 03:00 36.9 C 71 16 132/74 96 Medications Administered Current Inpatient Medications Acetaminophen (Tylenol) 650 mg PO Q4H PRN PRN Reason: Pain or Fever Stop: 05/29/20 13:44 Al Hydrox/Mg Hydrox/Simethicone (Maalox) 15 ml PO Q4H PRN PRN Reason: Dyspepsia Stop: 05/29/20 13:44 Cyclosporine (Restasis) 1 drops OPB BID [facility] Stop: 05/29/20 20:59 Last Admin: 04/30/20 09:17 Dose: 1 drops Documented by: Heparin Sodium (Porcine) (Heparin Sodium (Porcine)) 5,000 units SQ Q12 [facility] Stop: 05/29/20 20:59 Last Admin: 04/30/20 09:20 Dose: Not Given Documented by: Ketorolac Tromethamine (Acular Ls 0.4%) 1 drops OPR BID [facility] Stop: 05/29/20 20:59 Last Admin: 04/30/20 09:15 Dose: 1 drops Documented by: Levothyroxine Sodium (Synthroid) 75 mcg PO DAILYBB [facility] Stop: 05/30/20 06:29 Last Admin: 04/30/20 06:16 Dose: 75 mcg Documented by: Magnesium Hydroxide (Milk Of Magnesia) 30 ml PO Q12H PRN PRN Reason: Constipation Stop: 05/29/20 13:44 Multivitamins/Minerals (Multivitamin W/ Minerals Tab) 1 tab PO DAILY [facility]; Protocol Stop: 05/30/20 08:59 Last Admin: 04/30/20 09:15 Dose: 1 tab Documented by: *Refresh*Non- Formulary Patient's Own Med 1 ea OP BID [facility] Stop: 05/29/20 20:59 Last Admin: 04/30/20 09:17 Dose: 1 drops Documented by: Polyethylene Glycol (Miralax Powder Packet) 17 gm PO DAILY PRN PRN Reason: Constipation Stop: 05/29/20 13:44
[2020-05-01] MEDS: LEVOTHYROXINE SODIUM 75 MCG TABLET PO SCH (05:51)
[2020-05-01] MEDS: HEPARIN SOD 5,000 UNIT/0.5 ML VIAL SQ SCH (08:27)
[2020-05-01] MEDS: REFRESH OP SCH (08:29)
[2020-05-01] MEDS: KETOROLAC LS 0.4% OP SOLN 5 ML BTL OPR SCH (08:29)
[2020-05-01] MEDS: cycloSPORINE (RESTASIS) OPB SCH (08:30)
[2020-05-01] MEDS: CEROVITE ADV FORMULA TAB PO SCH (08:55)
[2020-05-01] MEDS ORDERED: levETIRAcetam 250 MG TAB PO SCH (09:30)
--- NOTE | 2020-05-01 11:45 | Hospitalist Progress Note ---
Date of Service April 30, 2020 Assessment & Plan (1) Seizure disorder: He had a 3 years history of nocturnal events, which have been unwitnessed Day event was on Saturday seems to be due to seizure and the patient was brought in post ictal state Appreciate neurology input and recommendation EEG has been performed today-results awaiting She was started with Keppra to 50 mg twice daily after discussing with the sales contracts analyst and the overseamer She was advised not to drive until being evaluated by the neurologist as an outpatient She will have somebody living with her for the next few days (2) Syncope: Likely secondary to seizures This is a 74-year-old female who has significant past medical history of hypothyroidism, RASHARD intolerant to CPAP, rheumatic mitral valve disease, osteoporosis, history of recurrent syncope with loop recorder in place, central serous chorioretinopathy who presents to ED after being found down on floor by sister this morning. She has a low elevated bed and was found to be on the floor by her sister on the morning of admission with incontinence and generalized weakness and confusion Her episode seems to be secondary to seizure with history of possible seizure disorder with past episode and documentation in the EEG findings in the past She has not been taking any medications to prevent seizures She denies to have any symptoms as of this morning Appreciate neurology input and recommendation She was not agreeable to go for MRI of the brain but later on she was agreed to do it She is not pain accepting Keppra as a prevention of seizure until she is cleared from her overseamer She has high risk of recurrent seizure and without medication is going to be worse She was explained this with repeated visits with her since this morning and she is still deciding about taking the medications on not She is not allowed to drive until being cleared by the neurologist as an outpatient on discharge MRI of the head did not show any stroke EEG of the brain is done this morning and results are pending Remains stable as of this morning She has has not implanted cardiac loop recorder Dr. Arango has been contacted to repeat loop recorder to rule out any arrhythmias as the cause of her episode She is cleared for MRI with this type of device in her chest (3) HLD (hyperlipidemia): hold statin due to mild elevation of CPK ordered IV fluid repeat CK in am (4) Obstructive sleep apnea: pt did not tolerate CPAP is not on O2 at hs (5) Central serous chorioretinopathy of right eye: Central serous chorioretinopathy of right eye She has been under care of Dr. Bunn for this and was advised not to take any medications until he is been informed about that The patient does not want to start any Keppra until it is been cleared by Dr. Bunn The neurologist has been trying to contact Dr. Bunn deeply at that issue (6) Hypothyroidism: continue levothyroxine FULL CODE (7) DVT prophylaxis: SQ Heparin Disposition: admit [facility] tele Follow up: PCP Dr. Byrd upon discharge She will be going home this afternoon Admission and Anticipated Discharge Date Admission Date: April 29, 2020 Subjective 04/30/2020 The patient was seen and examined in medical telemetry unit She was admitted with a possible seizure that happened on Saturday night at home She complains to have minimal decrease in supervisor cytogenetic laboratory with the right hand Denies any other significant symptoms 05/01/2020 The patient was seen and examined in medical telemetry unit She has been stable and denies any complaints She did not have any more episodes of seizure and/or syncope No arrhythmias recorded Review of Systems Review of Systems: All systems reviewed and are unremarkable except as noted below Neurologic: No neuro symptoms Physical Exam Physical Exam: Sitting at the edge of the bed without any acute distress Constitutional: well developed and well nourished; no acute distress and not ill appearing Eyes: PERRL, conjunctivae normal, anicteric sclerae ENMT: external ear and nose normal, oropharynx normal Neck: trachea midline, no thyromegaly Respiratory: normal respiratory effort; no respiratory distress Auscultation: lungs clear to auscultation bilaterally Cardiovascular: Rate/Rhythm: regular rate and regular rhythm Heart Sounds: no murmur Gastrointestinal (Abdomen): Inspection/Auscultation: abdomen normal to inspection; abdomen not distended Percussion/Palpation: abdomen soft; abdomen nontender Musculoskeletal: No acute arthritis involving any joints Neurologic: CN's II-XI intact bilaterally Alert, awake and oriented x3. No focal sensory and/or motor deficit appreciated. Psychiatric: A+Ox3, euthymic affect Lymphatic: no cervical or axillary lymphadenopathy Results & Data Results & Data ([facility]) Vital Signs (Past 12 Hours) Vital Signs Temp Pulse Pulse Resp BP Pulse Ox 04/30/20 15:24 37.0 C 72 18 148/81 H 97 04/30/20 13:03 98 04/30/20 07:20 71 04/30/20 07:17 36.7 C 70 16 134/72 95 Medications Administered Current Inpatient Medications Acetaminophen (Tylenol) 650 mg PO Q4H PRN PRN Reason: Pain or Fever Stop: 05/29/20 13:44 Al Hydrox/Mg Hydrox/Simethicone (Maalox) 15 ml PO Q4H PRN PRN Reason: Dyspepsia Stop: 05/29/20 13:44 Cyclosporine (Restasis) 1 drops OPB BID [facility] Stop: 05/29/20 20:59 Last Admin: 05/01/20 08:30 Dose: 1 drops Documented by: Heparin Sodium (Porcine) (Heparin Sodium (Porcine)) 5,000 units SQ Q12 [facility] Stop: 05/29/20 20:59 Last Admin: 05/01/20 08:27 Dose: Not Given Documented by: Ketorolac Tromethamine (Acular Ls 0.4%) 1 drops OPR BID [facility] Stop: 05/29/20 20:59 Last Admin: 05/01/20 08:29 Dose: 1 drops Documented by: Levetiracetam (Keppra) 250 mg PO QAM [facility] Stop: 05/31/20 09:29 Last Admin: 05/01/20 11:10 Dose: 250 mg Documented by: Levothyroxine Sodium (Synthroid) 75 mcg PO DAILYBB [facility] Stop: 05/30/20 06:29 Last Admin: 05/01/20 05:51 Dose: 75 mcg Documented by: Magnesium Hydroxide (Milk Of Magnesia) 30 ml PO Q12H PRN PRN Reason: Constipation Stop: 05/29/20 13:44 Multivitamins/Minerals (Multivitamin W/ Minerals Tab) 1 tab PO DAILY [facility]; Protocol Stop: 05/30/20 08:59 Last Admin: 05/01/20 08:55 Dose: 1 tab Documented by: *Refresh*Non- Formulary Patient's Own Med 1 ea OP BID [facility] Stop: 05/29/20 20:59 Last Admin: 05/01/20 08:29 Dose: 1 drops Documented by: Polyethylene Glycol (Miralax Powder Packet) 17 gm PO DAILY PRN PRN Reason: Constipation Stop: 05/29/20 13:44
--- NOTE | 2020-05-01 12:01 | Progress Notes ---
DATE: 05/01/2020 SUBJECTIVE: I am seeing the patient who had an episode where she fell out of bed, was confused for fairly protracted period of time. There is an elevated CK. MRI of the brain has been normal and the patient has had multiple nocturnal episodes of this sort. Her sister indicates to me that after she has had at least 2 of these episodes, her personality changes and she is quite irritable, which is unusual for her. That has certainly been the case on this admission. Her sister indicates that it took a while, perhaps some weeks to improve. We did discuss an episode several months ago where the patient had called her sister during the night, but the sister did not have access to a phone. Apparently her legs felt weak and she sat in a chair for about 3 hours until she felt better. She did not have a personality change after that and she was otherwise not injured. PHYSICAL EXAMINATION: VITAL SIGNS: Today blood pressure 142/85, pulse 95, respirations 16, temp 36.9. GENERAL: The patient is awake and alert, mildly irritable. NEUROLOGIC: There is normal extraocular motility, facial symmetry. There may be mild decrease in right rapid alternating movements, but if so, it is minimal. Lower extremity strength is full. IMPRESSION: This is a patient who has had multiple nocturnal episodes over 3-5 years. An EEG in 2018 showed some left temporal sharp and spike waves. At that time, she was being monitored via a loop monitor and the treating neurologist wanted to observe further since the EEG was not definitive. The patient has a loop monitor and I am assuming there were no dysrhythmias and certainly a dysrhythmia would not typically present as this did. PLAN: EEG today. Provided no subclinical status, we will discharge her on Keppra 250 mg b.i.d. for a week and then 500 mg b.i.d. She will monitor for fatigue and irritability. Her sister is going to be staying with her for the next week or so. I will see her in the office and see what my thoughts are about returning to driving. She does meet a legal criteria to do so as her episodes have only been during sleep. Her sister will also let me know if the irritability persists. If she is increasingly irritable on the Keppra, probably would switch her to Trileptal.
[2020-05-01] MEDS ORDERED: levETIRAcetam 250 MG TAB PO ONE (12:09)
--- NOTE | 2020-05-01 12:40 | Electroencephalogram ---
EEG Procedure Note Date of Service May 01, 2020 Start / End Times Start Time: 10:11 End Time: 10:[address] Toma Hamlin History A 74 year old woman with suspected noctural seizures. EEG performed for evaluation of epileptiform activity. Home Medication List Home Medications Medication Instructions Recorded Confirmed Type PreserVision AREDS 1 tab PO BID 04/29/20 04/29/20 History Refresh Optive Advanced 1 drp OPHTHALMIC (EYE) BID 04/29/20 04/29/20 History Restasis 1 drp OPB BID 04/29/20 04/29/20 History alendronate 70 mg PO TU 04/29/20 04/29/20 History atorvastatin 20 mg PO DAILY 04/29/20 04/29/20 History ketorolac 1 drp OPR BID 04/29/20 04/29/20 History levothyroxine 75 mcg PO DAILY 04/29/20 04/29/20 History levetiracetam [Keppra] 250 mg PO BID #60 tab 05/01/20 Rx Inpatient Medication List Cyclosporine (Restasis) 1 drops OPB BID [facility] Stop: 05/29/20 20:59 Last Admin: 05/01/20 08:30 Dose: 1 drops Documented by: [id number] Admin: 04/30/20 20:11 Dose: 1 drops Documented by: [id number] Admin: 04/30/20 09:17 Dose: 1 drops Documented by: [id number] Admin: 04/29/20 21:23 Dose: 1 drops Documented by: [id number] Heparin Sodium (Porcine) (Heparin Sodium (Porcine)) 5,000 units SQ Q12 [facility] Stop: 05/29/20 20:59 Last Admin: 05/01/20 08:27 Dose: Not Given Documented by: [id number] Admin: 04/30/20 20:16 Dose: Not Given Documented by: [id number] Admin: 04/30/20 09:20 Dose: Not Given Documented by: [id number] Admin: 04/29/20 21:21 Dose: Not Given Documented by: [id number] Ketorolac Tromethamine (Acular Ls 0.4%) 1 drops OPR BID [facility] Stop: 05/29/20 20:59 Last Admin: 05/01/20 08:29 Dose: 1 drops Documented by: [id number] Admin: 04/30/20 20:11 Dose: 1 drops Documented by: [id number] Admin: 04/30/20 09:15 Dose: 1 drops Documented by: [id number] Admin: 04/29/20 21:24 Dose: 1 drops Documented by: [id number] Levetiracetam (Keppra) 250 mg PO QAM [facility] Stop: 05/31/20 09:29 Last Admin: 05/01/20 11:10 Dose: 250 mg Documented by: [id number] Levothyroxine Sodium (Synthroid) 75 mcg PO DAILYBB [facility] Stop: 05/30/20 06:29 Last Admin: 05/01/20 05:51 Dose: 75 mcg Documented by: [id number] Admin: 04/30/20 06:16 Dose: 75 mcg Documented by: [id number] Multivitamins/Minerals (Multivitamin W/ Minerals Tab) 1 tab PO DAILY [facility]; Protocol Stop: 05/30/20 08:59 Last Admin: 05/01/20 08:55 Dose: 1 tab Documented by: [id number] Admin: 04/30/20 09:15 Dose: 1 tab Documented by: [id number] *Refresh*Non- Formulary Patient's Own Med 1 ea OP BID [facility] Stop: 05/29/20 20:59 Last Admin: 05/01/20 08:29 Dose: 1 drops Documented by: [id number] Admin: 04/30/20 20:17 Dose: Not Given Documented by: [id number] Admin: 04/30/20 09:17 Dose: 1 drops Documented by: [id number] Admin: 04/29/20 21:25 Dose: 1 drops Documented by: [id number] Discontinued Medications Gadobutrol (Gadavist 7.5ml) 6 ml IV ONCE ONE Stop: 04/30/20 14:37 Last Admin: 04/30/20 14:36 Dose: 6 ml Documented by: [id number] Sodium Chloride (Nss 1000ml) 1,000 mls @ 999 mls/hr IV .Q1H1M [facility] Stop: 04/29/20 08:45 Last Infusion: 04/29/20 09:24 Dose: 0 mls/hr Documented by: [id number] Admin: 04/29/20 08:23 Dose: 999 mls/hr Documented by: [id number] Sodium Chloride (Nss 1000ml) 1,000 mls @ 100 mls/hr IV .Q10H [facility] Stop: 04/29/20 23:44 Last Infusion: 04/30/20 00:53 Dose: 0 mls/hr Documented by: [id number] Infusion: 04/29/20 15:59 Dose: 100 mls/hr Documented by: [id number] Admin: 04/29/20 14:16 Dose: 75 mls/hr Documented by: [id number] Miscellaneous (Order Awaiting Action) 1 ea N/A QS [facility] Stop: 05/29/20 15:59 Last Admin: 04/29/20 16:16 Dose: Not Given Documented by: [id number] Miscellaneous (Order Awaiting Action) 1 ea N/A QS [facility] Stop: 05/29/20 15:59 Last Admin: 04/29/20 16:16 Dose: Not Given Documented by: [id number] Pneumococcal Polyvalent Vaccine (Pneumovax-23) 25 mcg IM .ONCE ONE Stop: 04/29/20 21:01 Last Admin: 04/29/20 21:22 Dose: Not Given Documented by: [id number] Description This is a 21 electrode EEG with a single channel dedicated to limited EKG. The electrodes were placed in accordance with the International 10-20 system. REPORT: At the onset of the EEG the patient is awake. The background is symmetric. The posterior dominant rhythm is not well seen. Instead there is low amplitude beta activity with some intermixed alpha frequencies. Photic stimulation is performed. Photic driving is noted. No stage II sleep transients are recorded. IMPRESSION: This is a normal awake routine EEG. Excessive beta activity is a normal variant. No epileptiform discharges or focal slowing is recorded.
--- NOTE | 2020-05-02 07:48 | Discharge Summary ---
Date of Service May 02, 2020 Admission HPI Per Admitting Provider This is a 74-year-old female who has significant past medical history of hypothyroidism, RASHARD intolerant to CPAP, rheumatic mitral valve disease, osteoporosis, history of recurrent syncope with loop recorder in place, central serous chorioretinopathy who presents to ED after being found down on floor by sister this morning. Sister and her are currently visiting from out of town. They got in last night and patient's last known time well was 9 PM last evening. According to sister she was her usual state of health, prolonged walk last evening. She went to bed without any complaints. Typically she takes the dog out around 530 or 6 AM. When sister awoke she went to check on patient and found her table in bed sheets laying on her side out of bed. When trying to wake her sister she appeared to have altered mental status and was confused. There is question about whether or not patient lost consciousness. She does not recall any events in last thing she recalls is going to bed last evening around 9 PM. She is unaware of any bowel or bladder incontinence; however per ED provider there was urine incontinence. Upon my examination patient is alert but drowsy and answers all questions appropriately. She denies any recent illness, fever, chills, sweats, lightheadedness, dizziness, headache, change in hearing, change in vision diplopia, chest pain, shortness of breath, palpitation, cough, nausea, vomiting, abdominal pain, change in bowel or urinary habits. She does admit to having pain around recorder site. She denies any known contacts to COVID-19 denies any loss of taste or smell. Prior to today she had normal appetite. According to sister she has had work history of recurrent syncope in the past. She follows Dr. Arango with recorder in place. She did have less than 1 second run of PAF but otherwise no arrhythmias have been noted. She also follows with [facility] neurology and there was discussion about possibly starting antiepileptic medication. She has not had recurrence of syncope in past 2 years. Currently sister feels in the past hour patient has become more lucid, but does admit to patient referring to her dog that previously . In ED patient remained hemodynamically stable, mildly hypertensive. Her CBC, CMP were generally unremarkable. Mild elevated CK 374, LFT otherwise WNL, mild hyperglycemia at 140. She 1 L of IVF in ED. UA negative for infection or drug tox. She underwent head CT, chest x-ray and pelvis x-ray which were generally unremarkable. Admission Exam Per Admitting Provider Physical Exam: Constitutional: WD/WN, thin, female, drowsy, vitals as above, NAD, sitting up in bed, answers questions appropriately and follows commands Head: Normocephalic, Atraumatic Eyes: PERRL, conjunctivae mildly erythematous with tearing of right eye, anicteric sclerae ENMT: external ear and nose normal, oropharynx normal Neck: trachea midline, no thyromegaly normal visual inspection Respiratory: normal respiratory effort, lungs clear to auscultation, no wheeze, rales, rhonchi. Normal insp/exp effort, no accessory muscle use Cardiovascular: RRR, no murmur, no edema Vessels: no JVD or carotid bruit Chest: normal inspection of chest Abdomen: normal bowel sounds, soft, nontender, no hepatosplenomegaly Musculoskeletal: no cyanosis or clubbing, extremities motor strength 5/5 Skin: no rashes, warm and dry normal turgor Neurologic: PERRL, EOMI, accommodation nl, no face palsy, no dysarthria CN's II-XI intact bilaterally and moves all extremities Psychiatric: A+Ox3, euthymic affect Lymphatic: no cervical or axillary lymphadenopathy : deferred Principal Diagnosis Seizure disorder, syncope, central serous chorioretinopathy of right eye, obstructive of sleep apnea, hypothyroidism Discharge Exam Constitutional well developed and well nourished; no acute distress and not ill appearing Eyes PERRL, conjunctivae normal, anicteric sclerae ENMT external ear and nose normal, oropharynx normal Neck trachea midline, no thyromegaly Respiratory normal respiratory effort; no respiratory distress Auscultation: lungs clear to auscultation bilaterally Cardiovascular Rate/Rhythm: regular rate and regular rhythm Heart Sounds: no murmur Gastrointestinal (Abdomen) Inspection/Auscultation: abdomen normal to inspection; abdomen not distended Percussion/Palpation: abdomen soft; abdomen nontender Neurologic CN's II-XI intact bilaterally Speech / Cognition: normal speech Motor/Sensory: no tremor Psychiatric A+Ox3, euthymic affect Lymphatic no cervical or axillary lymphadenopathy Discharge Data Allergies Allergy/AdvReac Type Severity Reaction Status Date / Time ampicillin Allergy Unknown . Verified 04/29/20 08:10 latex Allergy Unknown RASH Verified 04/29/20 08:10 milk Allergy Unknown GI ISSUES Verified 04/29/20 08:10 Penicillins Allergy Unknown . Verified 04/29/20 08:10 adhesive tape Allergy Verified 04/29/20 08:10 Consultations 04/29/20 11:42 ED Decision to Admit Stat 04/29/20 13:06 Consult Neurology Routine 04/29/20 13:13 Consult Case Management - Discharge Planning Routine Ordered Studies 04/29/20 07:44 CT head/brain wo con Stat 04/30/20 10:56 MRI Brain [MR brain seizure wo/w con] Routine Hospital Course (1) Seizure disorder: He had a 3 years history of nocturnal events, which have been unwitnessed Day event was on Saturday seems to be due to seizure and the patient was brought in post ictal state Appreciate neurology input and recommendation EEG has been performed today-results awaiting She was started with Keppra to 50 mg twice daily after discussing with the cable installation manager and the cigar head stringer She was advised not to drive until being evaluated by the neurologist as an outpatient She will have somebody living with her for the next few days (2) Syncope: Likely secondary to seizures This is a 74-year-old female who has significant past medical history of hypothyroidism, RASHARD intolerant to CPAP, rheumatic mitral valve disease, osteoporosis, history of recurrent syncope with loop recorder in place, central serous chorioretinopathy who presents to ED after being found down on floor by sister this morning. She has a low elevated bed and was found to be on the floor by her sister on the morning of admission with incontinence and generalized weakness and confusion Her episode seems to be secondary to seizure with history of possible seizure disorder with past episode and documentation in the EEG findings in the past She has not been taking any medications to prevent seizures She denies to have any symptoms as of this morning Appreciate neurology input and recommendation She was not agreeable to go for MRI of the brain but later on she was agreed to do it She is not pain accepting Keppra as a prevention of seizure until she is cleared from her cigar head stringer She has high risk of recurrent seizure and without medication is going to be worse She was explained this with repeated visits with her since this morning and she is still deciding about taking the medications on not She is not allowed to drive until being cleared by the neurologist as an outpatient on discharge MRI of the head did not show any stroke EEG of the brain is done this morning and results are pending Remains stable as of this morning She has has not implanted cardiac loop recorder Dr. Arango has been contacted to repeat loop recorder to rule out any arrhythmias as the cause of her episode She is cleared for MRI with this type of device in her chest (3) HLD (hyperlipidemia): hold statin due to mild elevation of CPK ordered IV fluid repeat CK in am (4) Obstructive sleep apnea: pt did not tolerate CPAP is not on O2 at hs (5) Central serous chorioretinopathy of right eye: Central serous chorioretinopathy of right eye She has been under care of Dr. Bunn for this and was advised not to take any medications until he is been informed about that The patient does not want to start any Keppra until it is been cleared by Dr. Bunn The neurologist has been trying to contact Dr. Bunn deeply at that issue (6) Hypothyroidism: continue levothyroxine FULL CODE (7) DVT prophylaxis: SQ Heparin Disposition: admit to [facility] Follow up: PCP Dr. Byrd upon discharge She will be going home this afternoon Total Time Total Time Spent Total Time Spent (In Minutes): 35 minutes Total Time Includes: Examination of the Patient, Discharge Planning, Medication Reconciliation and Communication With Other Providers Discharge Plan Discharge Items Patient Disposition: Home - Self-Care Reason For Visit: AMS Discharge Diagnosis: Seizure disorder, syncope, central serous chorioretinopathy of right eye, obstr uctive of sleep apnea, hypothyroidism Condition on Discharge: Good Activity: Resume your previous activity Activity Comment: Please do not drive until being evaluated by the neurology as an outpatient Non-emergency contact: Primary Care Provider Call non-emergency contact if: you have any medication questions and your symptoms worsen Follow-up/Referrals: Inés Byrd, [Primary Care Provider] - (Your doctor's office will call you on Saturday with an appointment within 7 days. [facility] neurology office will call you with an appointment within 7 to 14 days) Diet: Regular Addtl Attending Provider Instructions: Please take precaution to avoid falls Please do not drive until you are been cleared by the neurologist as an outpatient Please have somebody to live with you in the next few days until you are being seen by your primary care doc and/or neurologist Pending Studies at Discharge: Yes Studies:: EEG report Stand-Alone Forms: My [facility], Smoking Cessation Medications and DC Order Prescriptions: New levetiracetam [Keppra] 250 mg Tablet 250 mg PO BID Qty: 60 RF: 0 Continued atorvastatin 20 mg tablet 20 mg PO DAILY RF: 0 alendronate 70 mg tablet 70 mg PO TU RF: 0 levothyroxine 75 mcg tablet 75 mcg PO DAILY RF: 0 Restasis 0.05 % dropperette 1 drp OPB BID RF: 0 ketorolac 0.4 % drops 1 drp OPR BID RF: 0 PreserVision AREDS [id number] Tablet 1 tab PO BID RF: 0 Refresh Optive Advanced 0.5-1-0.5 % Drops 1 drp ophthalmic (eye) BID RF: 0 Discharge Orders: Discharge Order (Routine); Ordered 05/01/20 Ordered By: Ebenezer Georges Admission Data Admit Date/Time: 04/29/20 11:39 Attending Provider: Ebenezer Georges Admit Provider: Sapna Mueller Primary Care Provider: Inés Byrd Other Providers: Sapna Mueller ; Toma Hamlin Other Interventions: Discharge Summary Assessment (RN) Last Done: 05/01/20 11:33 DC Date/Time DO NOT enter until pt leaves facility: 05/01/20 12:45
[2020-05-02] MEDS ORDERED: levETIRAcetam 250 MG TAB PO SCH (09:00)
== END 2020-05-01 12:45 | disposition home or self-care (01) ==
LOC: ED 07:39 → 2W 07:39 → SUATTDRO 11:39 → 2W 12:38